=== PATIENT | male | born 1990 | race Caucasian/White ===

== ENCOUNTER 2020-10-29 12:31 | Emergency (ER) | payer SELFPAY ==
[2020-10-29 14:02] VITALS: BP 148/81; PULSE 64; RESP 16; TEMP 36.7; O2SAT 97; BMI 36.6
[2020-10-29 14:30] VITALS: BP 148/96; PULSE 64; RESP 18; TEMP 36.7; O2SAT 98
--- NOTE | 2020-10-29 14:37 | HMH.EDUTC ---
[facility] Disposition Clinical Impression: Exposure to COVID-19 virus Disposition: Home, Self-Care Condition on Discharge: Good Instructions: DI for COVID-19 (Suspected or Confirmed ), Coronavirus Disease 2019, Preventing the Spread of Coronavirus Discharge Instructions Additional Instructions: *Monitor Temp, Over the counter Motrin or Tylenol as directed/as needed Tylenol every 4 hours and Motrin every 6 hours (as long as your family doctor has told you that you can take it) for fever or pain. and straight to ER if unable to lower temp less than 101.0 after medication given *Warm fluids like tea with honey may help to soothe the throat and open up nasal passages and help with cough *Sleep elevated *Humidifier/Vaporizer Over the counter Cough medication like robitussin may help with cough Over the counter mucinex may help with congestion make sure to drink plenty of fluids with it Follow up IMMEDIATELY for new or worsening symptoms or no Noticeable improvement over the next 48-72 hours. 911 for difficulty breathing or swallowing You were tested for today for COVID19 your test result should be back in the next 24-48 hours, you may call to the [facility] to see if your test results are back in the next 48 hours [phone] [facility] hours are 9am-9pm You was given a handout with instructions for Self Quarantine and Self isolation for while you wait on test results and what to do if they are positive If you are positive the Health Dept will be contacting you also Make sure to take your Vitamins Vit. C Vit D and Zinc if you can take them Referrals: Provider,Referral, MD [Primary Care Provider] - As needed Forms: Work/School Release Time of Disposition: 14:40 Medical Decision Making - Flex Inquiry Pt receiving controlled substance: No Flex was queried for this patient: No Vital Signs: 10/29/20 14:02 Temperature 98.1 F Temperature Source Oral Pulse Rate [Right] 64 Respiratory Rate 16 Blood Pressure [Right Arm] 148/81 H Blood Pressure Mean [Right Arm] 103 02 Sat by Pulse Oximetry 97 Oxygen Delivery Method Room Air Orders (Tests/Meds): ORDERS Category Date Time Status Covid-19 Nasal PCR ([facility]) Routine Lab 10/29/20 14:10 Received [facility] HPI - General Stated complaint: covid exposure,symtoms Time Seen by Provider: 10/29/20 14:37 Mode of Arrival: Family Vehicle Source of Information: Patient Limitations: No Limitations Description of Symptoms (Recalled from Triage Doc. by RN): Patient reports he was exposed to COVID from his fiance. Patient c/o loss of taste and smell and general mylagia. HEENT Symptoms (Recalled from RN notes): Yes Resp Symptoms (Recalled from RN notes): No Skin Symptoms (Recalled from RN notes): No MS Symptoms (Recalled from RN notes): Yes Functional Status (Recalled from RN notes): na - History of Present Illness Provider Complaint: Patient state that his fiance and her daughter recently tested positive for COVID state that he is now having symptoms and wants to get tested States that he is having body aches cough and chills and loss of taste and smell so he came in today to get tested - Worker's Comp Is this a Worker's Comp case?: No Is this an [facility] Worker's Comp?: No Is this a Deann Worker's Comp?: No H History - Hepatitis A Screen Drug use history?: No High risk sexual behaviors?: No History of sexually transmitted infection?: No Currently employed?: No Childcare worker?: No Do you have indoor plumbing?: Yes Do you have electricity?: Yes Attestation statement:: This patient has been screened for Hepatitis A risk factors. I have reviewed the patient's past medical history: Yes ROS Obtained: Yes All systems reviewed & no additional complaints, Yes Systems reviewed as appropriate & no additional complaints - Constitutional Constitutional: Reports system reviewed and no additional complaints, except as docu, Reports body ache, Reports chills, Reports fatigue - ENT Ears, Nose, Mo
--- NOTE | 2020-10-30 16:07 | PC.NURSE ---
attempted to call and notify pt of test result, no answer, voicemail left asking for a return call.
--- NOTE | 2020-10-30 16:13 | PC.NURSE ---
notified pt of positive covid swab result at this time
== END 2020-10-29 14:47 | disposition home or self-care (01) ==
PROVIDERS: Emergency Provider Nurse Practitioner
DX: U07.1 COVID-19 (principal)
CPT/HCPCS: 99202; G0463; U0003

== ENCOUNTER 2020-12-30 22:23 | Emergency (ER) | payer SELFPAY ==
[2020-12-30 22:24] VITALS: BP 152/102; PULSE 110; RESP 16; TEMP 36.9; O2SAT 98; BMI 36.5
--- NOTE | 2020-12-30 22:40 | CT_ITS ---
PROCEDURE INFORMATION: Exam: CT Abdomen And Pelvis With Contrast Exam date and time: 12/30/2020 10:40 PM Age: 30 years old Clinical indication: Abdominal pain; Localized; Left upper quadrant (luq); Patient HX: Luq pain, PT has diverticulitis TECHNIQUE: Imaging protocol: Computed tomography of the abdomen and pelvis with contrast. Radiation optimization: All CT scans at this facility use at least one of these dose optimization techniques: automated exposure control; mA and/or kV adjustment per patient size (includes targeted exams where dose is matched to clinical indication); or iterative reconstruction. Contrast material: ISOVUE; Contrast volume: 75 ml; Contrast route: IV; COMPARISON: No relevant prior studies available. FINDINGS: Liver: 2 cm simple cyst inferior right lobe of the liver. Gallbladder and bile ducts: Normal. No calcified stones. No ductal dilation. Pancreas: Normal. No ductal dilation. Spleen: Normal. No splenomegaly. Adrenal glands: Normal. No mass. Kidneys and ureters: Normal. No hydronephrosis. Stomach and bowel: Long segment wall thickening of the sigmoid ancolon most pronounced in the proximal sigmoid colon where there is diverticulosis and extensive surrounding inflammatory changes and these findings are concerning for acute diverticulitis. Appendix: No evidence of appendicitis. Intraperitoneal space: Small amount of free fluid in the pelvis. Vasculature: Unremarkable. No abdominal aortic aneurysm. Lymph nodes: Unremarkable. No enlarged lymph nodes. Urinary bladder: Unremarkable as visualized. Reproductive: Unremarkable as visualized. Bones/joints: Unremarkable. No acute fracture. Soft tissues: Unremarkable. IMPRESSION: Severe sigmoid diverticulitis. No perforation or abscess.
[2020-12-30 22:57] LABS: Basophils # 0.1 K/mm3 (0-0.2); Basophils % 0.5 % (0.1-2.0); Eosinophils # 0.1 K/mm3 (0.0-0.4); Eosinophils % 0.7 % (0.1-12.0); Hematocrit 49.3 % (42.0-52.0); Hemoglobin 16.3 g/dL (14.1-18.0); Lymphocytes # 1.6 K/mm3 (0.7-4.5); Lymphocytes % 10.4 % (10-50); Mean Corpuscular Hemoglobin 30.8 pg (27.0-31.2); Mean Corpuscular Volume 93.1 fl (80-94); Mean Platelet Volume 8.5 fl (7.4-10.4); Monocytes # 0.8 K/mm3 (0.1-1.0); Monocytes % 5.1 % (1.7-9.3); Neutrophils % 83.4 % (37.0-80.0); Platelet Count 249 K/mm3 (142-424); Red Blood Count 5.29 M/mm3 (4.60-6.20); Red Cell Distribution Width 13.9 % (11.5-17.5); White Blood Count 15.6 K/mm3 (4.8-10.8)
[2020-12-30 22:59] LABS: MANUAL DIFFERENTIAL MANUAL DIFFERENTIAL (MANUAL DIFF)
[2020-12-30 23:04] LABS: Alanine Aminotransferase 39 U/L (12-78); Albumin Level 4.2 g/dl (3.5-5.0); Albumin/Globulin Ratio 1.3 (1.1-1.8); Alkaline Phosphatase 75 U/L (38-126); Amylase 54 U/L (30-110); Anion Gap 13.8 mEq/L (5-15); Aspartate Amino Transferase 25 U/L (17-59); Bilirubin,Total 0.8 mg/dl (0.2-1.3); Blood Urea Nitrogen 9 mg/dl (9-20); Calcium 9.2 mg/dl (8.4-10.2); Carbon Dioxide 27 mmol/L (22.0-30.0); Chloride 102 mmol/L (98-107); Creatinine Clearance Estimated 297 mL/min (50-200); Estimated Glomerular Filt Rate 132 ml/min (>60); GFR (African American) 160 ML/MIN (>60); Globulin 3.2 g/dL (1.3-3.2); Glucose 107 mg/dl (74-100); Lipase 27 U/L (23-300); Potassium 3.8 mmoL/L (3.5-5.1); Sodium 139 mmol/L (136-145); Total Protein,Serum 7.4 g/dl (6.3-8.2)
[2020-12-30 23:11] LABS: Lymphocytes % 11 % (10-50); Monocytes % 10 % (2-9); Neutrophils % 79 % (42-76); Platelet Estimate Normal; RBC Morphology Normal; Total Cells Counted 100
[2020-12-30 23:23] LABS: Procalcitonin 0.075 ng/mL (0.0-2.0)
[2020-12-30 23:49] LABS: Erythrocyte Sedimentation Rate 7 mm/hr (0-15)
--- NOTE | 2020-12-31 00:20 | HMH.EDNVD ---
ED Disposition Clinical Impression: Diverticulitis, SIRS (systemic inflammatory response syndrome) Disposition: Home, Self-Care Condition on Discharge: Good Instructions: DI for Diverticulitis Additional Instructions: fluids and see pcp for follow up and also surg Prescriptions: levoFLOXacin [Levofloxacin 750MG Tablet*] 750 mg PO DAILY #10 tab Transmission Status: Pending to [facility] #[id number] metroNIDAZOLE [metroNIDAZOLE 500mg Tablet] 500 mg PO TID #30 tab Transmission Status: Pending to [facility] #[id number] Referrals: Provider,Referral, [Primary Care Provider] - - Critical Care Critical Care Time: No Attestation: On 12/30/20, the high probability of a clinically significant, sudden or life threatening deterioration of the following system(s) required my full and direct attention, intervention and personal management. The time I documented below is in addition to time spent performing reported procedures but includes the following listed in this critical care notation. Medical Decision Making - Medical Records Medical records reviewed: Yes: I reviewed the patient's medical records. - Flex Inquiry Pt receiving controlled substance: No Vital Signs: 12/30/20 22:24 12/31/20 00:22 12/31/20 00:30 Temperature 98.4 F Temperature Source Oral Pulse Rate 93 H 88 Pulse Rate [Right Radial] 110 H Respiratory Rate 16 Blood Pressure 112/68 115/73 Blood Pressure [Right Arm] 152/102 H Blood Pressure Mean [Right Arm] 118 Blood Pressure Source Automatic Cuff Blood Pressure Source [Right Arm] Automatic Cuff Blood Pressure Position Sitting Blood Pressure Position [Right Arm] Sitting 02 Sat by Pulse Oximetry 98 96 98 Oxygen Delivery Method Room Air Room Air - Lab Data Lab results reviewed: Yes: I reviewed the patient's lab results. Lab Results 12/30/20 22:48: WBC 15.6 H, RBC 5.29, Hgb 16.3, Hct 49.3, MCV 93.1, MCH 30.8, MCHC 33.0, RDW 13.9, Plt Count 249, MPV 8.5, Neut % (Auto) 83.4 H, Lymph % (Auto) 10.4, Woodward % (Auto) 5.1, Eos % (Auto) 0.7, Baso % (Auto) 0.5, Neut # (Auto) 13.0 H, Lymph # (Auto) 1.6, Woodward # (Auto) 0.8, Eos # (Auto) 0.1, Baso # (Auto) 0.1, Total Counted 100, Neutrophils % (Manual) 79 H, Lymphocytes % (Manual) 11, Monocytes % (Manual) 10 H, Platelet Estimate Normal, RBC Morphology Normal, ESR 7 12/30/20 22:48: Sodium 139, Potassium 3.8, Chloride 102, Carbon Dioxide 27, Anion Gap 13.8, BUN 9, Creatinine 0.70, Estimated Creat Clear 297, Estimated GFR 132, Est GFR ( Amer) 160, Glucose 107 H, Calcium 9.2, Total Bilirubin 0.8, AST 25, ALT 39, Alkaline Phosphatase 75, C-Reactive Protein 83.0 H, Total Protein 7.4, Albumin 4.2, Globulin 3.2, Albumin/Globulin Ratio 1.3, Amylase 54, Lipase 27, Procalcitonin 0.075 12/31/20 00:20: Lactate 0.8 Result diagrams: 12/30/20 22:48 12/30/20 22:48 Orders (Tests/Meds): ED MEDICATIONS Generic Name Dose Route Start Last Admin Trade Name Freq PRN Reason Stop Dose Admin Sodium Chloride 1,000 mls @ 999 mls/hr 12/30/20 22:45 12/30/20 23:04 Sod Chlor 0.9% 1000ml Bag IV 12/30/20 23:45 999 mls/hr .Q1H1M KAROLINA Administration Sodium Chloride 1,000 mls @ 999 mls/hr 12/31/20 00:15 12/31/20 00:44 Sod Chlor 0.9% 1000ml Bag IV 12/31/20 01:15 999 mls/hr .Q1H1M KAROLINA Administration Levofloxacin/Dextrose 750 mg in 150 mls @ 100 mls/hr 12/31/20 00:30 12/31/20 00:35 Levofloxacin 750mg/150ml Premix IV 01/14/21 00:29 100 mls/hr Q24H KAROLINA Administration Sodium Chloride 8 ml 12/30/20 22:40 Sodium Chloride 0.9% 10ml Vial IV 01/29/21 22:39 NEEDED PRN dilute pepcid Discontinued Medications Generic Name Dose Route Start Last Admin Trade Name Freq PRN Reason Stop Dose Admin Famotidine 20 mg 12/30/20 22:40 12/30/20 23:05 Famotidine 20mg/2ml Vial IV 12/30/20 22:41 20 mg ONCE ONE Administration Iopamidol 75 ml 12/30/20 23:04 12/30/20 23:07 Iopamidol-370 (76%);100ml Rory
[2020-12-31 00:22] VITALS: BP 112/68; PULSE 93; O2SAT 96
[2020-12-31 00:30] VITALS: BP 115/73; PULSE 88; O2SAT 98
[2020-12-31 00:57] LABS: Lactic Acid 0.8 mmol/L (0.7-2.1)
[2020-12-31 01:21] VITALS: BP 118/81; PULSE 88; RESP 14; TEMP 37.1
== END 2020-12-31 01:24 | disposition home or self-care (01) ==
PROVIDERS: Emergency Provider Emergency Medicine
DX: K57.92 Diverticulitis of intestine, part unspecified, without perforation or abscess without bleeding (principal); R65.10 Systemic inflammatory response syndrome (SIRS) of non-infectious origin without acute organ dysfunction
CPT/HCPCS: 74177; 80053; 82150; 83605; 83690; 84145; 85007; 85025; 85651; 86140; 87040; 99283; J1956; J2405; Q9967

== ENCOUNTER 2022-03-02 19:17 | Emergency (ER) | payer BC, SELFPAY ==
[2022-03-02 20:10] VITALS: BP 148/106; PULSE 74; RESP 16; TEMP 36.8; O2SAT 98; BMI 35.3
--- NOTE | 2022-03-02 20:32 | EXP.UTC ---
Discharge Plan Disposition Patient Disposition: Home, Self-Care Condition: Good Prescriptions Prescriptions: New azithromycin [Zithromax Z-Livan] 250 mg tablet See Rx Instructions .ROUTE .COMPLEX 5 Days Qty: 6 0RF Rx Instructions: For 250 mg dose pack: take 500 mg today (day 1), then 250 mg for 4 days (days 2-5) ondansetron 4 mg tablet,disintegrating 4 mg PO Q8H PRN (Reason: nausea and vomiting) Qty: 10 0RF No Action levofloxacin 750 MG tablet 750 mg PO DAILY Qty: 10 0RF metronidazole 500 MG tablet 500 mg PO TID Qty: 30 0RF Referrals Follow up/Referrals: Provider,Referral, MD [Primary Care Provider] - See instructions Activity Restrictions/Add. Instructions Additional Instructions/Restrictions: *Monitor Temp, Over the counter Motrin or Tylenol as directed/as needed Tylenol every 4 hours and Motrin every 6 hours (as long as your family doctor has told you that you can take it) for fever or pain. and straight to ER if unable to lower temp less than 101.0 after medication given *Warm salt water gargles may help to soothe the throat *Throat Lozenges? *Warm fluids like tea with honey may help to soothe the throat? *Sleep elevated *Humidifier/Vaporizer Your throat swab was sent for culture. Those results are typically sent to your primary care. Be sure to follow up in 2-3 days with your family doctor/primary care physician if no improvement so they can review those result and treat if necessary. If you don?t have a primary care doctor, I recommend you get one but in the mean time, you will have to return to a walk in clinic Follow up IMMEDIATELY for new or worsening symptoms or no Noticeable improvement over the next 48-72 hours. 911 for difficulty breathing or swallowing Take your blood pressure medication as prescribed and follow up with your Family Doctor for re-evaluation Straight to ER if worse headache of your life or worsening of blood pressure Clinical Impressions Clinical Impression: Pharyngitis Instructions Patient Instructions: Sore Throat Discharge ED Provider: Bernice Delgadillo [facility] General Stated complaint: exposed to strep, sore throat Mode of Arrival: Ambulatory Source of Information: Patient Limitations: No Limitations Time Seen by Provider: 03/02/22 20:32 Description of Symptoms (Recalled from Triage Doc. by RN): PATIENT C/O SORE THROAT, RECENTLY EXPOSED TO STREP HEENT Symptoms (Recalled from RN notes): Yes Resp Symptoms (Recalled from RN notes): No Skin Symptoms (Recalled from RN notes): No MS Symptoms (Recalled from RN notes): No Functional Status (Recalled from RN notes): WNL History of Present Illness Provider Complaint: Patient states that he was around his son that has strep throat States that he has been having sore throat and nausea States that he feels like he may have strep throat Related Data Previous Rx's Medication Instructions Recorded levofloxacin 750 mg tablet 750 mg PO DAILY #10 tabs 12/31/20 metronidazole 500 mg tablet 500 mg PO TID #30 tabs 12/31/20 azithromycin 250 mg tablet See Rx Instructions PO .COMPLEX 5 03/02/22 (Zithromax Z-Livan) days #6 tabs ondansetron 4 mg disintegrating 4 mg PO Q8H PRN nausea and 03/02/22 tablet vomiting #10 tabs Allergies Allergy/AdvReac Type Severity Reaction Status Date / Time Penicillins Allergy Verified 12/30/20 22:39 Worker's Comp Is this a Worker's Comp case?: No [facility] Disclaimer: The information contained in this section may have been updated after the patient was seen, as this information can be updated by other users. Medical History (Updated 03/02/22 @ 20:42 by Bernice Delgadillo APRN) No significant past medical history Social History (Updated 03/02/22 @ 20:25 by Shala Harris RN) Smoking Status: Unknown if ever smoked alcohol intake: never current occupational status: other Travel in the last 8 weeks: None ROS Obtained: Yes All systems rev
[2022-03-02 20:46] VITALS: BP 148/106; PULSE 74; RESP 16; TEMP 36.8; O2SAT 98
[2022-03-03 19:32] LABS: UTC Strep Screen (Rapid) Negative (Negative)
== END 2022-03-02 20:51 | disposition home or self-care (01) ==
PROVIDERS: Emergency Provider Nurse Practitioner
DX: J02.9 Acute pharyngitis, unspecified (principal); Z20.828 Contact with and (suspected) exposure to other viral communicable diseases
CPT/HCPCS: 87880; 99212; G0463

== ENCOUNTER → 2022-04-25 14:07 | Outpatient (CLI) | payer BC, SELFPAY | PROVIDERS: PCP Nurse Practitioner Family; Visit Provider Nurse Practitioner Family | DX: G47.33 Obstructive sleep apnea (adult) (pediatric) (principal); R53.83 Other fatigue; R06.83 Snoring | CPT/HCPCS: G0399 ==

== ENCOUNTER → 2022-05-05 11:19 | Outpatient (CLI) | payer BC, SELFPAY ==
--- NOTE | 2022-05-05 11:28 | XR_ITS ---
FINAL REPORT CLINICAL HISTORY: KNEE PAIN, ARTHRITIS FINDINGS: AP, lateral and oblique views of the left knee were obtained. There is no prior exam for comparison. There is no acute osseous abnormality of the left knee. The joint space is preserved. The soft tissues are normal. There is no joint effusion. IMPRESSION: No acute osseous abnormality of the left knee. Reviewed, Interpreted and Dictated by Martina Guerra MD Transcribed by Lisa Hunter Authenticated and [facility]
--- NOTE | 2022-05-05 11:28 | XR_ITS ---
FINAL REPORT CLINICAL HISTORY: ARTHRITIS, KNEE PAIN FINDINGS: AP, lateral and oblique views of the right knee were obtained. There is no prior exam for comparison. There is no acute osseous abnormality of the right knee. The joint space is preserved. The soft tissues are normal. There is no joint effusion. IMPRESSION: No acute osseous abnormality of the right knee. Reviewed, Interpreted and Dictated by Martina Guerra MD Transcribed by Lisa Hunter Authenticated and [facility]
== END ==
LOC: RAD 11:20
PROVIDERS: PCP Nurse Practitioner Family; Visit Provider Nurse Practitioner Family
DX: M17.0 Bilateral primary osteoarthritis of knee (principal)
CPT/HCPCS: 73562

== ENCOUNTER 2022-05-19 11:27 | Emergency (ER) | payer BC, SELFPAY ==
[2022-05-19 12:10] VITALS: BP 138/98; PULSE 82; RESP 20; TEMP 37.1; O2SAT 98; BMI 34.2
--- NOTE | 2022-05-19 12:27 | EXP.UTC ---
Discharge Plan Disposition Patient Disposition: Home, Self-Care Condition: Good Prescriptions Prescriptions: New clindamycin HCl 300 mg capsule 300 mg PO Q8H Qty: 30 0RF prednisone 10 mg tablet 10 mg PO BID 3 Days Qty: 6 0RF ondansetron 4 mg Tablet,Disintegrating 4 mg PO Q8H PRN (Reason: Nausea) Qty: 12 0RF No Action lisinopril 10 mg tablet 10 mg PO DAILY amlodipine [Norvasc] 10 mg tablet 10 mg PO DAILY Referrals Follow up/Referrals: Belia Husain APRN [Primary Care Provider] - See instructions Activity Restrictions/Add. Instructions Additional Instructions/Restrictions: Drink plenty of fluids. Take tylenol or ibuprofen for pain or fever. Take the medications as directed. Follow up with your regular doctor. GO TO THE ER FOR ANY WORSENING SYMPTOMS Throw your tooth brush away and get a new one. Clinical Impressions Clinical Impression: Strep throat Stand Alone Forms Stand Alone Forms: Work/School Release Instructions Patient Instructions: Strep Throat, DI for Strep Throat Discharge ED Provider: Rahul Queen [facility] General Stated complaint: head congestion, cough Time Seen by Provider: 05/19/22 12:26 History of Present Illness Provider Complaint: He states that for the past 2 days he has had a worsening sore throat, fever, chills and malaise. Related Data Home Medications Medication Instructions Recorded Confirmed lisinopril 10 mg tablet 10 mg PO DAILY . 05/13/22 05/19/22 amlodipine 10 mg tablet (Norvasc) 10 mg PO DAILY . 05/16/22 05/19/22 Previous Rx's Medication Instructions Recorded clindamycin HCl 300 mg capsule 300 mg PO Q8H #30 caps 05/19/22 ondansetron 4 mg disintegrating 4 mg PO Q8H PRN Nausea #12 tabs 05/19/22 tablet prednisone 10 mg tablet 10 mg PO BID 3 days #6 tabs 05/19/22 Allergies Allergy/AdvReac Type Severity Reaction Status Date / Time Penicillins Allergy Verified 05/19/22 12:35 [facility] Disclaimer: The information contained in this section may have been updated after the patient was seen, as this information can be updated by other users. Medical History No significant past medical history Social History Smoking Status: Former smoker alcohol intake: current substance use type: denies use current occupational status: employed Travel in the last 8 weeks: None household members: spouse housing: apartment marital status: number of children: 8 ROS Obtained: Yes All systems reviewed & no additional complaints except as documented Constitutional Constitutional: Reports chills and Reports fever(s) Eyes Eyes: Denies eye discharge ENT Ears, Nose, Mouth, and Throat: Reports as per HPI Cardiovascular Cardiovascular: Denies chest pain Respiratory Respiratory: Denies chest congestion and Reports cough Gastrointestinal Gastrointestingal: Reports nausea; Denies abdominal pain, constipation, cramping, diarrhea or vomiting Musculoskeletal Musculoskeletal: Denies arthralgias Integumentary/Breasts Skin/Breast: Denies rash Neurologic Neurologic: Denies paresthesias Physical Exam General General appearance: alert and in no apparent distress Head Head exam: atraumatic, normocephalic and normal inspection Eye Eye exam: Present normal appearance, PERRL and EOMI ENT ENT exam: Present mucous membranes moist and normal external ear exam Expanded ENT Exam TM/Canal exam: Bilateral TM: erythema and bulging Nose exam: Absent sinus tenderness Mouth exam: Present normal external inspection; Absent drooling Teeth exam: Present normal inspection Throat exam: Present tonsillar erythema, tonsillomegaly and tonsillar exudate Neck Neck exam: Present normal inspection, full ROM and trachea midline; Absent tenderness, meningismus or lymphadenopathy Chest Chest inspection: Present normal inspection
[2022-05-19 12:39] LABS: UTC Strep Screen (Rapid) Positive (Negative)
[2022-05-19 13:05] VITALS: BP 138/98; PULSE 82; RESP 20; TEMP 37.1; O2SAT 98
== END 2022-05-19 13:05 | disposition home or self-care (01) ==
PROVIDERS: Emergency Provider Nurse Practitioner Family; PCP Nurse Practitioner Family
DX: J02.0 Streptococcal pharyngitis (principal); R53.81 Other malaise; R05.1 Acute cough; R50.9 Fever, unspecified
CPT/HCPCS: 87880; 99212; 99214; G0463

== ENCOUNTER 2024-04-29 11:25 | Emergency (ER) | payer OTHER, SELFPAY ==
[2024-04-29 11:35] VITALS: BP 134/93; PULSE 108; RESP 18; TEMP 37.5; O2SAT 96; BMI 35.3
[2024-04-29 11:40] VITALS: BP 134/93; PULSE 108; RESP 18; TEMP 37.5; O2SAT 96
--- NOTE | 2024-04-29 11:41 | HMH.EDGENADL ---
Discharge Plan Disposition Patient Disposition: Home, Self-Care Condition: Good Prescriptions Prescriptions: No Action No Known Home Medications Referrals Follow up/Referrals: Belia Daniel APRN [Primary Care Provider] - See instructions Activity Restrictions/Add. Instructions Additional Instructions/Restrictions: You are found to have influenza A. You can take Tylenol and ibuprofen to help with symptoms. Follow-up with your primary care physician if symptoms do not improve over the next week. If you develop any new or worsening symptoms, or if you become concerned for your health for any reason, return to the emergency department for evaluation Clinical Impressions Clinical Impression: Influenza A Print Language Print Language: Yoruba Discharge ED Provider: Samy Sullivan General Adult HPI General Chief complaint: Fever Stated complaint: fever, congestion, cough, headache, weakness Time Seen by Provider: 04/29/24 11:41 Mode of Arrival: Ambulatory Source of Information: Patient Limitations: No Limitations Description of Symptoms (Recalled from ER Triage Doc. by RN): PT STATED HE WAS EXPOSED TO PNA RECENTLY. ENDORSES HE HAS HAD A FEVER AND COUGH HAS TAKEN MOTRIN, SUDA-FED, AND ROBITUSSIN History of Present Illness HPI narrative: Doc Baumann is a 33-year-old male with a past medical history of diverticulosis and pneumonia as a child who presents to the emergency department for complaints of cough, fever and nasal congestion. Patient reports that his stepson is currently admitted in [facility] with bronchitis and pneumonia. Patient states that starting last night, he developed nasal congestion and a fever of 101 ?F. He has been taking [id number] antipyretics for symptoms. He also notes that he has been coughing and it has been mildly productive. He is concerned he might have pneumonia. He denies any vomiting or diarrhea. Related Data Home Medications ?Medication ?Instructions ?Recorded ?Confirmed No Known Home Medications 04/29/24 04/29/24 Allergies Allergy/AdvReac Type Severity Reaction Status Date / Time Penicillins Allergy Verified 10/04/23 09:08 benadryl AdvReac Mild Uncoded 10/04/23 09:08 [facility] Disclaimer: The information contained in this section may have been updated after the patient was seen, as this information can be updated by other users. Surgical History (Updated 10/04/23 @ 09:14 by SELAM Mariee) No history of previous surgery Social History (Updated 02/15/23 @ 15:26 by Odalys Leos) Smoking Status: Never smoker alcohol intake: current alcohol intake frequency: holidays/special occasions only substance use type: denies use current occupational status: employed Travel in the last 8 weeks: None household members: spouse housing: house marital status: number of children: 8 Have you lived/traveled outside US in past 30 days?: No Contact w/someone who lives/traveled outside US past 30 days?: No Exposure to someone with infectious disease in past 14 days?: No Do you have a fever (greater than 100.4 F or 38 C)?: Yes Have you tested positive for COVID-19: No Exposed to someone with COVID-19 in past 14 days?: No Do you have a sore throat?: No Do you have a cough?: Yes Do you have any weakness?: Yes Do you have any diarrhea?: No Are you experiencing any unusual bleeding?: No Do you have any muscle aches/pain?: Yes Do you have any abdominal pain?: No Are you experiencing loss of taste or smell?: No Other Medical History Have you received the Flu Vaccine for this season: Yes Have you received the Pneumonia Vaccine: No ROS Obtained: Yes Systems reviewed as appropriate & no additional complaints except as documented Physical Exam General General appearance: alert and in no apparent distress Head Head exam: atraumatic Eye Eye exam: Present normal appearance ENT ENT exam: Present normal external ear exam Neck Neck exam: Present full ROM Chest Chest inspection: Present symmetric chest wall rise Respiratory Respiratory exam: Present normal lung sounds bilaterally; Absent respiratory distress, wheezes or stridor Cardiovascular Cardiovascular exam: Present regular rate and normal rhythm Abdominal Exam Abdominal exam: Present soft; Absent tenderness or guarding exam: Present deferred Extremities Exam Extremities exam: Present normal inspection Back Exam Back exam: Present normal inspection Neurological Exam Neurological exam: Present alert and oriented X3 Psychiatric Psychiatric exam: Present normal affect Skin Skin exam: Present warm and dry Medical Decision Making Medical Records Screening: Per USPSTF and CDC recommendations, given the prevalence of disease in our region, it is our hospital?s policy to screen for HIV and viral Hepatitis for all patients aged 18 and over and those with ongoing risk factors. Flex Inquiry Pt receiving controlled substance: No Vital Signs: 04/29/24 11:35 04/29/24 11:40 04/29/24 11:41 Temperature 99.5 F 99.5 F Temperature Source Oral Oral Oral Pulse Rate 108 H Pulse Rate [Right Radial] 108 H Respiratory Rate 18 18 Blood Pressure 134/93 H Blood Pressure [Left Arm] 134/93 H Blood Pressure Mean [Left Arm] 106 Blood Pressure Source Automatic Cuff Blood Pressure Source [Left Arm] Automatic Cuff Blood Pressure Position Sitting Blood Pressure Position [Left Arm] Sitting 02 Sat by Pulse Oximetry 96 96 Oxygen Delivery Method Room Air Room Air 04/29/24 12:17 04/29/24 14:09 Temperature 99.5 F Temperature Source Oral Pulse Rate 100 H 100 H Pulse Rate [Right Radial] Respiratory Rate 18 Blood Pressure 129/85 129/85 Blood Pressure [Left Arm] Blood Pressure Mean [Left Arm] Blood Pressure Source Automatic Cuff Blood Pressure Source [Left Arm] Blood Pressure Position Sitting Blood Pressure Position [Left Arm] 02 Sat by Pulse Oximetry 96 Oxygen Delivery Method Room Air Room Air Lab Data Lab Results 04/29/24 11:59: SARS-CoV-2 (PCR) Not detected, Influenza A Untype (PCR) Detected A, Influenza Type B (PCR) Not detected Orders (Tests/Meds): ORDERS Category Date Time Status CXR 2 view (NOT portable) [XR chest 2V] Stat Exams 04/29/24 11:46 Completed Rapid PCR Covid and Flu A/B Stat Lab 04/29/24 11:59 Completed Medical Decision Narrative: Doc Baumann is a 33-year-old male with a past medical history of diverticulosis and pneumonia as a child who presents to the emergency department for complaints of cough, fever and nasal congestion. Patient reports that his stepson is currently admitted in [facility] with bronchitis and pneumonia. Patient states that starting last night, he developed nasal congestion and a fever of 101 ?F. He has been taking [id number] antipyretics for symptoms. He also notes that he has been coughing and it has been mildly productive. He is concerned he might have pneumonia. He denies any vomiting or diarrhea. On arrival, patient is mildly tachycardic but afebrile, normotensive, breathing comfortably on room air and in no distress. Physical exam, stated above, revealed overall well-appearing male in no distress. He has no wheezing, rales or rhonchi. Cardiac exam reveals tachycardia but no murmurs or rubs appreciated. Differential diagnosis includes, but is not limited to: Viral respiratory illness such as COVID or flu, pneumonia, pleurisy, among others. Low concern for PE at this time as the patient has not had any hemoptysis and has had recent viral exposure. Workup included: COVID/flu testing, chest x-ray Chest x-ray interpreted by me personally and demonstrated no focal consolidation, no pneumothorax or pleural effusion. See radiology report for details. Patient did test positive for influenza A Patient was encouraged to take Tylenol and ibuprofen at home to help with symptoms and to continue hydrating well. He was encouraged to follow with his primary care physician if symptoms do not improve. Return precautions were given. He was then discharged from the emergency department in stable condition Critical Care Critical Care Time Critical Care Time: No
--- NOTE | 2024-04-29 11:46 | XR_ITS ---
FINAL REPORT CLINICAL HISTORY: Cough, fever, possible pneumonia COMPARISON: None FINDINGS: No acute pulmonary density is evident. There is no evidence of effusion or other pleural disease. The mediastinum has a normal appearance. The cardiac silhouette is unremarkable. IMPRESSION: Unremarkable chest exam. Reviewed, Interpreted and Dictated by Marcial Araya MD Transcribed by Stephanie Collazo Authenticated and [facility]
[2024-04-29 12:02] LABS: Coronavirus 19, PCR Not Detected (NotDetected); Influenza B, PCR Not Detected (NotDetected)
--- NOTE | 2024-04-29 12:02 | PC.NURSE ---
covid/swab sent to lab; pt reports no needs at this time.
[2024-04-29 12:17] VITALS: BP 129/85; PULSE 100; O2SAT 96
[2024-04-29 13:44] LABS: Influenza A, PCR Detected (NotDetected)
[2024-04-29 14:09] VITALS: BP 129/85; PULSE 100; RESP 18; TEMP 37.5; O2SAT 96
== END 2024-04-29 14:11 | disposition home or self-care (01) ==
PROVIDERS: Emergency Provider Student in an Organized Health Care Education/Training Program; PCP Nurse Practitioner Family
DX: J10.1 Influenza due to other identified influenza virus with other respiratory manifestations (principal); R50.9 Fever, unspecified; R05.9 Cough, unspecified; R09.81 Nasal congestion; R53.1 Weakness; Z20.828 Contact with and (suspected) exposure to other viral communicable diseases
CPT/HCPCS: 71046; 87636; 99283

== ENCOUNTER 2024-05-01 15:09 | Emergency (ER) | payer OTHER, SELFPAY ==
[2024-05-01 15:10] VITALS: BP 165/115; PULSE 109; RESP 18; TEMP 37.2; O2SAT 98; BMI 35.3
[2024-05-01 16:00] VITALS: BP 138/101; PULSE 103; O2SAT 95
--- NOTE | 2024-05-01 16:17 | XR_ITS ---
PROCEDURE INFORMATION: Exam: XR Chest Exam date and time: 05/01/2024 4:30 PM Age: 33 years old Clinical indication: Shortness of breath; Additional info: Shortness of air TECHNIQUE: Imaging protocol: Radiologic exam of the chest. Views: 1 view. COMPARISON: CR XR CHEST 2V 04/29/2024 11:41 AM FINDINGS: Lungs: Normal. Pleural spaces: Normal. No pleural effusion. No pneumothorax. Heart/Mediastinum: Normal. No cardiomegaly. Bones/joints: Unremarkable. IMPRESSION: No acute findings.
--- NOTE | 2024-05-01 16:21 | PC.NURSE ---
rounded on the pt. the pt voices that he does not need anything at this time. call light is within reach of the pt.
--- NOTE | 2024-05-01 16:36 | ED_ITS ---
<Statement entered by Luis Alberto Terry MD - 05/01/24 21:40> I was consulted by the MELODY, and we discussed the complexity of the problems being addressed. I approved the treatment and management plan for this patient's care in the emergency department, thus performing a substantive portion of the medical decision making. Luis Alberto Terry MD Discharge Plan Disposition Patient Disposition: Home, Self-Care Condition: Good Chief Complaint: Upper Respiratory Infection Prescriptions Prescriptions: No Action No Known Home Medications Referrals Follow up/Referrals: Belia Daniel APRN [Primary Care Provider] - See instructions Activity Restrictions/Add. Instructions Additional Instructions/Restrictions: Return to the emergency department any worsening signs or symptoms continue with supportive care, xobg-ojg-extlgel cold and flu medications ibuprofen and Tylenol. Follow-up with family doctor. Clinical Impressions Clinical Impression: Influenza A Instructions Patient Instructions: DI for Influenza -- Adult, DI for Acute Bronchitis Print Language Print Language: Greek Discharge ED Provider: Luis Alberto Terry General Adult HPI General Chief complaint: Upper Respiratory Infection Stated complaint: flu+, rattly breathing, chills Time Seen by Provider: 05/01/24 15:23 Mode of Arrival: Ambulatory Source of Information: Patient Limitations: No Limitations Description of Symptoms (Recalled from ER Triage Doc. by RN): Patient reports being diagnosed with Flu A on Monday and states that when he coughs it sounds rattly . Patient states he just wants someone to listen to his lungs. History of Present Illness HPI narrative: This is a 33-year-old male who presents to the emergency department with cough congestion, body aches fatigue malaise, and shortness of air, patient was recently seen in the emergency department 2 days ago for similar complaint was diagnosed with influenza A, patient has been having persistent fevers, he has been utilizing ibuprofen Tylenol grpi-yxw-cjukbop cold and flu medications as directed, with some relief. He woke up this morning with some rattling in my chest , he presents to the emergency department today to make sure I do not have pneumonia . He has a history of pneumonia as a child , other past medical history consistent with diverticulosis. Otherwise no real relevant past medical history, denies abdominal pain constipation, denies vomiting, diarrhea, denies any real chest pain, urinary type symptomatology. Triage vitals notable for tachycardia, otherwise afebrile, O2 within normal limits, denies any history of substance use, denies any history of lung disease such as COPD or asthma. Onset (ago): day(s) Related Data Home Medications ?Medication ?Instructions ?Recorded ?Confirmed No Known Home Medications 04/29/24 05/01/24 Allergies Allergy/AdvReac Type Severity Reaction Status Date / Time Penicillins Allergy Verified 10/04/23 09:08 benadryl AdvReac Mild Uncoded 10/04/23 09:08 PFSH [facility] Disclaimer: The information contained in this section may have been updated after the patient was seen, as this information can be updated by other users. Surgical History (Updated 10/04/23 @ 09:14 by SELAM Mariee) No history of previous surgery Social History (Updated 02/15/23 @ 15:26 by Odalys Leos) Smoking Status: Never smoker alcohol intake: current alcohol intake frequency: holidays/special occasions only substance use type: denies use current occupational status: employed Travel in the last 8 weeks: None household members: spouse housing: house marital status: number of children: 8 Have you lived/traveled outside US in past 30 days?: No Contact w/someone who lives/traveled outside US past 30 days?: No Exposure to someone with infectious disease in past 14 days?: No Do you have a fever (greater than 100.4 F or 38 C)?: Yes Have you tested positive for COVID-19: No Exposed to someone with COVID-19 in past 14 days?: No Do you have a sore throat?: No Do you have a cough?: No Do you have any weakness?: No Do you have any diarrhea?: No Are you experiencing any unusual bleeding?: No Do you have any muscle aches/pain?: No Do you have any abdominal pain?: No Are you experiencing loss of taste or smell?: No Other Medical History Have you received the Flu Vaccine for this season: Yes Have you received the Pneumonia Vaccine: No ROS Obtained: Yes All systems reviewed & no additional complaints except as documented Physical Exam General General appearance: alert and in no apparent distress Head Head exam: atraumatic and normocephalic Eye Eye exam: Present PERRL and EOMI ENT ENT exam: Present mucous membranes moist Neck Neck exam: Present normal inspection Chest Chest inspection: Present normal inspection and symmetric chest wall rise Respiratory Respiratory exam: Present normal lung sounds bilaterally and other (Mild rhonchi noted in the upper airways, otherwise no wheezing, no Rales, no crackles, good expiratory and inspiratory phases); Absent respiratory distress Cardiovascular Cardiovascular exam: Present regular rate and normal rhythm Abdominal Exam Abdominal exam: Present soft; Absent tenderness, guarding or rebound Extremities Exam Extremities exam: Present normal inspection Neurological Exam Neurological exam: Present alert and oriented X3 Psychiatric Psychiatric exam: Present normal affect Skin Skin exam: Present warm and dry Medical Decision Making Medical Records Medical records reviewed: Yes I reviewed the patient's medical records. Screening: Per USPSTF and CDC recommendations, given the prevalence of disease in our region, it is our hospital?s policy to screen for HIV and viral Hepatitis for all patients aged 18 and over and those with ongoing risk factors. Flex Inquiry Pt receiving controlled substance: No Flex was queried for this patient: No Vital Signs: 05/01/24 15:10 05/01/24 16:00 Temperature 99.0 F Temperature Source Oral Pulse Rate 103 H Pulse Rate [Radial] 109 H Respiratory Rate 18 Blood Pressure 138/101 H Blood Pressure [Right Arm] 165/115 H Blood Pressure Mean [Right Arm] 131 Blood Pressure Source [Right Arm] Automatic Cuff Blood Pressure Position [Right Arm] Sitting 02 Sat by Pulse Oximetry 98 95 Oxygen Delivery Method Room Air Room Air Orders (Tests/Meds): ORDERS Category Date Time Status XR chest portable Stat Exams 05/01/24 16:17 Completed HIV Combo Stat Lab 05/01/24 15:20 Ordered Hepatitis C Ab Qual. W/ RFX Stat Lab 05/01/24 15:20 Ordered Medical Decision Narrative: 33-year-old male presents to the emergency department with right eye symptomatology, already diagnosed with influenza A 2 days ago, differential diagnose include but not limited to, acute bronchitis, influenza, pneumonia. I discussed patient case with attending physician Dr. Terry Offered laboratory studies and further workup to the patient, patient already has diagnosis of influenza, will obtain chest x-ray to rule out pneumonia, patient voiced understand agreement current treatment plan. Patient otherwise remained hemodynamically stable throughout his time in the emergency department, patient's tachycardia has improved, tachypnea, no decreased oxygen saturation. The patient's chest x-ray along the corresponding radiologic report no acute findings. Discussed these results with the patient at the bedside, patient is going to be discharged home to self-care, patient is still somewhat in the window for Tamiflu/antiviral medication, offered to the patient, he denied at this time would like to continue with other supportive care shared decision making was utilized this is appropriate. Patient will follow-up with PCP as directed, strict ED return precautions were given. Patient voiced understanding agreement with current discharge plan/treatment plan. Critical Care Critical Care Time Critical Care Time: No
[2024-05-01 17:00] VITALS: BP 126/96; PULSE 98; RESP 18; TEMP 37.2; O2SAT 99
== END 2024-05-01 17:00 | disposition home or self-care (01) ==
PROVIDERS: Emergency Provider Emergency Medicine; PCP Nurse Practitioner Family
DX: J09.X2 Influenza due to identified novel influenza A virus with other respiratory manifestations (principal)
CPT/HCPCS: 71045; 99284

== ENCOUNTER 2024-09-26 22:30 | Inpatient (IN) | payer OTHER, SELFPAY ==
--- OUTSIDE RECORDS SUMMARY | 2024-06-08 17:30 | XMS_ITS ---
Author Organization [facility] Address [address] [place] [address] Care Team Providers Care Supervising Deputy Name Role Phone Yousif Daniel Primary Care Provider YOUSIF Daniel APRN Unavailable Unavailable Migration, Provider Unavailable Unavailable [facility] Encounter Medications Medication SIG (Take, Route, Frequency, Duration) Notes Start Date End Date Status amLODIPine Besylate 10 MG 1 tab(s) orally once a day; Duration: 30 day(s) 04/07/2022 Active Metamucil Smooth Texture 58.6 % as directed orally once a day; Duration: 7 day(s) 04/29/2022 Active MiraLax - DIRECTED ORALLY ONCE A DAY; Duration: 30 DAY(S) *Please review and pick correct strength-formulation from [facility] options. If intended option is not shown, discontinue and re-order from Quick Search* 04/29/2022 Active Lisinopril 10 MG 1 tab(s) orally once a day; Duration: 30 day(s) 05/05/2022 Active Encounters Encounter Location Date Provider Diagnosis [facility] [address] [place], [place] [address] 06/08/2024 Provider Migration Essential (primary) hypertension I10 Assessments Encounter Date Diagnosis (ICD Code) Assessment Notes Treatment Notes Treatment Clinical Notes Section Notes 06/08/2024 Essential (primary) hypertension (ICD-10 - I10) Plan Of Treatment Medication Medication Name Sig Start Date Stop Date Notes Lisinopril 10 MG 1 tab(s) orally once a day; Duration: 30 day(s) 05/05/2022 Progress Notes * Doc BAUMANNDOB:1990 (33 yo M)Acc No.[id number]:06/08/2024 Patient: Doc MALIK Provider: Mitali Diaz :1990 A ge:33 Y S ex:Male Date:06/08/2024 Address:[address] [place] [address] , [place], [id number] Pcp:Yousif Danile Subjective: * Chief Complaints: * 1 . [facility] En[facility]. * Medical History: * Medications: T aking amLODIPine Besylate 10 MG Tablet 1 tab(s) orally once a day , Taking Metamucil Smooth Texture 58.6 % Powder as directed orally once a day , Taking MiraLax - POWDER FOR RECONSTITUTION DIRECTED ORALLY ONCE A DAY , Notes to Pharmacist: *Please review and pick correct strength[facility]ulation [facility]. If intended option is not shown, discontinue and re-order from Quick Search* Objective: * Vitals: Assessment: * Assessment: 1. E ssential (primary) hypertension - I10 (Primary) Plan: * Treatment: * * Electronic signature of Azra ider Migration on 09/27/2024 at 09:35 AM EDT Sign off status: Pending * Provider: Mitali Diaz Date: 0 06/08/2024 Generated for Brady guzmán/Katherin/Vandana on: 0 09/27/2024 09:35 AM EDT
--- OUTSIDE RECORDS SUMMARY | 2024-06-08 17:30 | XMS_ITS ---
Author Organization [facility] Address [address] [place] [address] Care Team Providers Care Veneer Jointer Returner Name Role Phone Yousif Daniel Primary Care Provider YOUSIF Daniel APRN Unavailable Unavailable Migration, Provider Unavailable Unavailable REASON FOR VISIT [facility] Encounter Medications Medication SIG (Take, [...] *Please review and pick correct strength-formulation from [facility] options. If intended option is not shown, discontinue and re-order from Quick Search* 04/29/2022 Active Lisinopril 10 MG 1 tab(s) orally once a day; Duration: 30 day(s) 05/05/2022 Active Encounters Encounter Location Date Provider Diagnosis [facility] [address] [place], [place] [address] 06/08/2024 Provider Migration Essential (primary) hypertension I10 Assessments Encounter Date Diagnosis (ICD Code) Assessment Notes Treatment Notes Treatment Clinical Notes Section Notes 06/08/2024 Essential (primary) hypertension (ICD-10 - I10) Plan Of Treatment Medication Medication Name Sig Start Date Stop Date Notes Lisinopril 10 MG 1 tab(s) orally once a day; Duration: 30 day(s) 05/05/2022 Progress Notes * Doc BAUMANNDOB:1990 (33 yo M)Acc No.[id number]:06/08/2024 Patient: Doc MALIK Provider: Mitali Diaz :1990 A ge:33 Y S ex:Male Date:06/08/2024 Address:[address] [place] [address] , [place], [id number] Pcp:Yousif Daniel Subjective: * Chief Complaints: * 1 . [facility] Conversion Encounter. * Medical History: * Medications: T aking amLODIPine Besylate 10 MG Tablet 1 tab(s) orally once a day , Taking Metamucil Smooth Texture 58.6 % Powder as directed orally once a day , Taking MiraLax - POWDER FOR RECONSTITUTION DIRECTED ORALLY ONCE A DAY , Notes to Pharmacist: *Please review and pick correct strength-formulation from [facility] options. If intended option is not shown, discontinue and re-order from Quick Search* Objective: * Vitals: Assessment: * Assessment: 1. E ssential (primary) hypertension - I10 (Primary) Plan: * Treatment: * * Electronic signature of Azra ider Migration on 09/26/2024 at 10:44 PM EDT Sign off status: Pending * Provider: Mitali Diaz Date: 0 06/08/2024 Generated for Brady guzmán/Katherin/Roditting on: 0 09/26/2024 10:44 PM EDT
--- OUTSIDE RECORDS SUMMARY | 2024-09-26 22:44 | XMS_ITS | Patient Health Record ---
Author Organization [facility] Address [address] [place] [address] Care Team Providers Care Admissions Counselor Name Role Phone Yousif Daniel Primary Care Provider [phone] YOUSIF Daniel APRN Unavailable Unavailable Migration, Provider Unavailable Unavailable Allergies No Known Allergies Reason For Referral No Information Medications Medication SIG (Take, Route, Frequency, Duration) Notes Start Date End Date Status amLODIPine Besylate 10 MG 1 tab(s) orally once a day; Duration: 30 day(s) 04/07/2022 Active Metamucil Smooth Texture 58.6 % as directed orally once a day; Duration: 7 day(s) 04/29/2022 Active MiraLax - DIRECTED ORALLY ONCE A DAY; Duration: 30 DAY(S) *Please review and pick correct strength-formulation from [employer] options. If intended option is not shown, discontinue and re-order from Quick Search* 04/29/2022 Active Lisinopril 10 MG 1 tab(s) orally once a day; Duration: 30 day(s) 05/05/2022 Active Social History Tobacco Use: Social History Observation Description Date Details (start date - stop date) Former Smoker NA - NA Smoking: Question Answer Notes Are you a: former smoker How long has it been since you last smoked? 5-10 years Section Notes: dips tobacco dips tobacco dips tobacco Problems Problem Type SNOMED Code ICD Code Onset Dates Problem Status W/U Status Risk Notes Problem Essential hypertension (33241831) Essential (primary) hypertension (I10) Active confirmed Problem Excessive thirst (32083209) Polydipsia (R63.1) Active confirmed Problem Constipation by delayed colonic transit (84428999) Constipation by delayed colonic transit (K59.01) Active confirmed Problem Obstructive sleep apnea syndrome (62982070) CLIFFORD (obstructive sleep apnea) (G47.33) Active confirmed Problem Diverticular disease of colon (582796861) Diverticulosis (K57.90) Active confirmed Problem Arthritis of both knees (751151108998826 8) Arthritis of both knees (M17.0) Active confirmed Encounters Encounter Location Date Provider Diagnosis [facility] [address] [place] [address] 06/08/2024 Provider Migration Essential (primary) hypertension I10 Assessments Encounter Date Diagnosis (ICD Code) Assessment Notes Treatment Notes Treatment Clinical Notes Section Notes 06/08/2024 Essential (primary) hypertension (ICD-10 - I10) Plan Of Treatment Pending Test Test Name Order Date Sleep Study 04/07/2022 Insurance Providers Payer Name Payer Address Payer Phone Subscriber Number Group Number Insured Name Patient Relationship to Insured Coverage Start Date Coverage End Date [email or web address] [address] [place] [address] [id number] Doc Baumann Self - patient is the insured Medical (General) History Medical History History ICD Code HTN Diverticulitis Knee issues
--- OUTSIDE RECORDS SUMMARY | 2024-09-26 22:44 | XMS_ITS | Encounter Summary ---
Author Organization [facility] Address [address] [place] [address] Care Team Providers Care Retirement Officer Name Role Phone Eric Dunlap MD Primary Care Provider Encounter Details Date Type Department Care Team (Late st Contact Info) Description 03/21/2013 Conversion Encounter [facility] [address] [place] [address] Interface, See Report Social History Tobacco Use Types Packs/Day Years Used Date Smoking Tobacco: Never Assessed Sex and Gender Information Value Date Recorded Sex Assigned at Not on file Legal Sex Male 10:52 AM EDT Gender Identity Not on file Sexual Orientation Not on file documented as of this encounter ED Notes * Interface, See Report - 03/21/2013 9:35 PM EST Clinical Report - Physicians/Mid Levels [facility] Emergency Department [address] [place] [address] 03/21/2013 Patient: DOC BAUMANN Sex: M : 1990 Age: 22y Arrived- By private vehicle. Historian- patient and family. HISTORY OF PRESENT ILLNESS Chief Complaint: SORE THROAT. This started several days and is still present. It has been constant. Pain described as moderate. The patient has had a sore throat. ( has strep). Similar symptoms previously: Recent medical care: Not recently seen/assessed. REVIEW OF SYSTEMS The patient has had fever and a cough. No eye discomfort, difficulty breathing, chest pain, nausea or diarrhea. No abdominal pain, difficulty with urination, headache, fainting episodes or joint pain. No skin rash, enlarged lymph nodes or vomiting. All systems otherwise negative, except as recorded above. PAST HISTORY Strep throat. Additional Problems: Hypertension. Gastroenteritis. Immunizations. Additional Surgeries: no known surgeries. Medications: Lisinopril Oral 5 mg, daily. Allergies: No Known Drug Allergy. SOCIAL HISTORY Nonsmoker. FAMILY HISTORY Negative. ADDITIONAL NOTES The nursing notes have been reviewed. PHYSICAL EXAM Appearance: Alert. No acute distress. Head: Normal external inspection. Eyes: Pupils equal, round and reactive to light. Conjunctivae and eyelids normal. ENT: Ears normal. Nose normal. Moderate pharyngeal erythema with right tonsillar swelling and exudate and left tonsillar swelling and exudate. No right tonsillar abscess or left tonsillar abscess. Lips normal. Gums normal. No trismus present. Neck: Normal inspection. Mild right anterior neck lymphadenopathy present. Trachea midline. Thyroid normal. Neck supple. CVS: Normal heart rate and rhythm. Heart sounds normal. Pulses normal. Respiratory: No respiratory distress. Breath sounds normal. Chest nontender. Abdomen: Soft and nontender. No organomegaly. Skin: Normal skin color. No rash. Normal skin turgor. Extremities: Extremities exhibit normal ROM. Extremities nontender. Neuro: Oriented X 3. No motor deficit. No sensory deficit. PROGRESS AND PROCEDURES Course of Care: 21:53. 21:53 Mar 21 2013 advised on the ss of worsening condition. all are thankful and agreeable with tx poc. Patient is stable. Disposition: Condition: good and stable. CLINICAL IMPRESSION Pharyngitis INSTRUCTIONS Take Tylenol (Acetaminophen) or Motrin (Ibuprofen) as needed for fever control. Take medication according to label instructions. Do not work for two days (may return to work earlier if better). Drink plenty of fluids. Do not smoke. Prescription Medications: Zithromax 250 mg tablets: take 2 orally today, followed by 1 daily for the next 4 days. No refills. Generic substitute OK. Follow-up: Follow up with your doctor in two days for suture removal. Understanding of the discharge instructions verbalized by patient and family. (Electronically signed by Arsenio Tompkins, N.P. 03/21/2013 22:25) Co-signature 03/22/2013 0:32 Agree with MLP's findings and plan. I reviewed the MLP's note. (Electronically signed by Alexis Trinh M.D. - 03/22/2013 0:32) documented in this encounter Plan of Treatment Not on file documented as of this encounter Procedures Procedure Name Priority Date/Time Associated Diagnosis Comments RAPID STREP SCREEN Routine 03/21/2013 9: 36 PM EST THROAT / UPPER RESPIRATORY CULTURE (REFERENCE) Routine 03/21/2013 9:36 PM EST documented in this encounter Results * Throat culture (03/21/2013 9:36 PM EST) Swab (specimen) 03/21/2013 9:36 PM EST Narrative [facility] - 03/24/2013 11:35 AM EST Specimen Type: Throat [facility] - Culture Throat Specimen: Throat Collected: 03/21/2013 21:36 Status: FINAL Last Updated: 03/24/2013 11:35 Culture Result (CR) (Final) Heavy Growth (CR) Usual Oral Gisselle Isolate (ISO1) (Final) Beta Hemolytic Streptococcus, Group F, Confirmed by Serology (ISO1) Moderate Growth (ISO1) Notify the laboratory to request susceptibility testing if Clindamycin or Erythromycin is the drug of choice. us Alexis Trinh MD MICROBIOLOGY - GENERAL ORDER ASHLEY Final Result Performing Organization Address City/State/[facility] Co de Phone Number [facility] [address] [place] [address], * Rapid strep screen (03/21/2013 9:36 PM EST) Strep A Ag Negative Negative [facility] Comment: US by [id number] @ 03/21/2013 21:56 Negative Strep A antigen results should be considered presumptive. Confirmation by culture to follow. Test performed by [facility] Ant[facility] Testing. Swab (specimen) 03/21/2013 9 :36 PM EST Narrative [facility] - 03/21/2013 9:56 PM EST Specimen Type: Throat Alexis rTinh MD MICROBIOLOGY - GENERAL ORDER ASHLEY Final Result [facility] [address] [place] [address], documented in this encounter Visit Diagnoses Not on filedocumented in this encounter Additional Health Concerns Infection Onset Date Last Indicated Resolved Time Influenza 03/18/2019 03/18/2019 documented as of this encounter Care Teams Retirement Officer Relationship Specialty Start Date End Date Eric Dunlap MD [facility] [address] [place] [address] PCP - General Adolescent Medicine 09/21/23 documented as of this encounter
--- OUTSIDE RECORDS SUMMARY | 2024-09-26 22:44 | XMS_ITS | Clinical Summary ---
Author Organization [facility] Address [address] [place] [address] Care Team Providers Care Washer Off Name Role Phone Eric Dunlap MD Primary Care Provider [phone] Allergies No known active allergies Medications ondansetron (ZOFRAN) 4 MG tablet Take 1 tablet by mouth Every 8 (Eight) Hours As Needed for Nausea or Vomiting. 10 tablet 0 Active triamcinolone (KENALOG) 0.1 % creamIndication s:Poison berry dermatitis Apply 1 Application topically to the appropriate area as directed 2 (Two) Times a Day. 45 g 4 Active Active Problems Problem Noted Date Diagnosed Date Diverticulitis 01/28/2019 Chews tobacco 01/28/2019 Irritable bowel syndrome with diarrhea 9 Family History Medical History Relation Name Comments Diabetes Maternal Grandfather Hyperlipidemia Maternal Grandfather Hypertension Mother Cancer Paternal Grandmother Breast Cancer Relation Name Status Comments Father Alive Maternal Grandfather Alive Mother Alive Paternal Grandmother Alive Social History Tobacco Use Types Packs/Day Years Used Date Smoking Tobacco: Former Smokeless Tobacco: Current Chew Tobacco Cessation:Ready to Q uit: Yes; Counseling Given: No Alcohol Use Standard Drinks/Week Comments Yes 1 (1 standard drink = 0.6 oz pur e alcohol) socially PHQ-2 Answer Date Recorded PHQ-2 Score 0 01/28/2019 Abuse Screen Answer Date Recorded Unsafe at Home or Work/School Not on file Feels Threatened by Someone? Not on file 10/2022 Does Anyone Keep You from Co ntacting Others or Doint Things Outside the Home? Not on file 12/11/2022 Physical Sign of Abuse Present Not on file 1 Housing Stability Answer Date Recorded Current Living Arrangements Not on file 10/2022 Potentially Unsafe Housing Conditions Not on eleonora e 12/11/2022 Family and Community Support Answer Luis e Recorded Help with Day-to-Day Activities Not on file 12/11/2022 Lonely or Isolated Not on file 12/11/2022 Employment Answer Date Recorded Do you want help finding or keeping work or a sarah b? Not on file 12/11/2022 Disabilities Answer Date Recorded Concentrating, Remembering, or Making Decisions Difficulty Not on file 12/11/2022 Doing Errands Independently Difficulty Not on fi le 12/11/2022 Education Answer Date Recorded Help with school or training? Not on file Preferred Language Not on file 12/11/2022 Sex and Gender Information Value Date Recorded Sex Assigned at Not on file Legal Sex Male 10:52 AM EDT Gender Identity Not on file Sexual Orientation Not on file Last Filed Vital Signs Vital Sign Reading Time Taken Comments Blood Pressure 166/105 09/21/2023 1:21 PM EDT Pulse 93 09/21/2023 1:21 PM EDT Temperature 37.1 C (98.7 F) 09/21/2023 1:21 PM EDT Respiratory Rate 14 09/21/2023 1:21 PM EDT Oxygen Saturation 98% 09/21/2023 1:21 PM EDT Inhaled Oxygen Concentration - - Weight 132 kg (290 lb) 09/21/2023 1:21 PM EDT Height 193 cm (6' 4 ) 09/21/2023 1:21 PM EDT Body Mass Index 35.3 09/21/2023 1:21 PM EDT Plan of Treatment Health Maintenance Due Date Last Done Comments TDAP/TD VACCINES (1 - Tdap) 2009 ANNUAL PHYSICAL 09/23/2016 HEPATITIS C SCREENING 09/23/2016 COVID-19 Vaccine (3 2023-2 5 season) 2023 06/12/2020, 05/12/2020 INFLUENZA VACCINE 12/04/2024 Pneumococcal Vaccine 0-49 Aged Out No longer eligible based on patient's age to complete this topic Additional Health Concerns Infection Onset Date Last Indicated Influenza 03/18/2019 03/18/2019 Insurance [facility] Care Teams Washer Off Relationship Specialty Start Date End Date Eric Dunlap MD [facility] [address] [facility] [address] [place] [address] PCP - General Adolescent Medicine 09/21/23
--- OUTSIDE RECORDS SUMMARY | 2024-09-26 22:44 | XMS_ITS | Clinical Summary ---
Author Organization [facility] Address [address] [place] [address] Care Team Providers Care Automotive Vehicle Inspector Name Role Phone Pcp, No Primary Care Provider Unavailabl e Allergies No known active allergies Social History Tobacco Use Types Packs/Day Years Used Date Smoking Tobacco: Never Assessed Sex and Gender Information Value Date Recorded Sex Assigned at Male 03/08/2021 3:21 AM EST Legal Sex Male 8:40 PM EDT Gender Identity Male 03/08/2021 3:21 AM EST Sexual Orientation Straight 03/08/2021 3: 21 AM EST Last Filed Vital Signs Vital Sign Reading Time Taken Comments Blood Pressure 124/78 03/08/2021 2:02 AM EST Pulse 85 03/08/2021 2:02 AM EST Temperature 36.8 C (98.2 F) 03/08/2021 2:02 AM EST Respiratory Rate 19 03/08/2021 2:02 AM EST Oxygen Saturation 99% 03/08/2021 2:02 AM EST Inhaled Oxygen Concentration - - Weight 119 kg (262 lb 2 oz) 03/08/2021 12:21 AM EST Height 193 cm (6' 4 ) 03/08/2021 12:22 AM EST Body Mass Index 31.91 03/08/2021 12:21 AM EST Plan of Treatment Health Maintenance Due Date Last Done Comments [facility]-Depression Screening 1990 [facility]-/Child/Adol SDOH Screenings 1990 [facility]-Varicella Vaccines (1 of 2 - 13+ 2-dose series) 12/07/2003 HPV Vaccines (1 - Male 3-dose series) 2005 [facility]- SDOH Screenings 2008 [facility]-Adult SDOH Screenings 2008 [facility]-DTaP,Tdap,and Td Vaccines (1 - Tdap) 2009 [facility]-Hepatitis B Vaccines (1 of 3 - 19+ 3-dose series) 2009 [id number] Vaccine (3 - 2023-25 season) 2023 06/12/2020, 05/12/2020 [facility]-Influenza Vaccine (#1) 2024 [facility]-Zoster Vaccines (1 of 2) 2040 [facility]-HIB Vaccines Aged Out No longer e ligible based on patient's age to complete this topic [facility]-Hepatitis A Vaccines Aged Out No longer eligible based on patient's age to complete this topic [facility]-IPV Vaccines Aged Out No longer e ligible based on patient's age to complete this topic [facility]-Pneumococcal Vaccine: Pediatrics (0 to 5 Years) and At-Risk Patients (6 to 49 Years) Aged Out No longer eligible b ased on patient's age to complete this topic [facility]-Rotavirus Vaccines Aged Out No lo nger eligible based on patient's age to complete [place] [address] NATALIE Care Teams Automotive Vehicle Inspector Relationship Specialty Start Date End Date Pcp, [place] [address] PCP - General Family Medicine 03/08/21
[2024-09-26 22:45] VITALS: BP 152/104; PULSE 104; RESP 17; TEMP 37.1; O2SAT 99; BMI 34.0
--- NOTE | 2024-09-26 22:51 | CT_ITS ---
PROCEDURE INFORMATION: Exam: CT Abdomen And Pelvis With Contrast Exam date and time: 09/26/2024 11:15 PM Age: 33 years old Clinical indication: Abdominal pain; Additional info: Abdominal pain, HX of diverticulitis, fever TECHNIQUE: Imaging protocol: Computed tomography of the abdomen and pelvis with contrast. Radiation optimization: All CT scans at this facility use at least one of these dose optimization techniques: automated exposure control; mA and/or kV adjustment per patient size (includes targeted exams where dose is matched to clinical indication); or iterative reconstruction. Contrast material: ISOVUE; Contrast volume: 75 ml; Contrast route: IV; COMPARISON: CT ABDOMEN PELVIS W CON 12/30/2020 10:53 PM FINDINGS: Liver: Unremarkable. 3.4 cm inferior hepatic tip cyst. No mass. Gallbladder and biliary ducts: Unremarkable. No calcified stones. No ductal dilation. Pancreas: Unremarkable. No ductal dilation. Spleen: Unremarkable. No splenomegaly. Adrenal glands: Unremarkable. No mass. Kidneys and ureters: No nephroureterolithiasis. No hydronephrosis. Stomach and bowel: Splenic flexure peridiverticular fat stranding with tiny pericolonic fluid collection. Diffuse mid sigmoid colonic wall thickening and peridiverticular fat stranding. Nonobstructive findings. Appendix: No evidence of appendicitis. Intraperitoneal space: Unremarkable. No free air. No significant fluid collection. Vasculature: Unremarkable. No abdominal aortic aneurysm. Lymph nodes: Unremarkable. No enlarged lymph nodes. Urinary bladder: Unremarkable as visualized. Reproductive: Unremarkable as visualized. Bones/joints: Unremarkable. No acute fracture. Soft tissues: Unremarkable. IMPRESSION: Two discontinuous foci of diverticulitis in splenic flexure and sigmoid colon with possible splenic flexure diverticular microperforation.
[2024-09-26 22:57] LABS: Hematocrit 41.2 % (42.0-52.0); Hemoglobin 14.4 g/dL (14.1-18.0); Mean Corpuscular HGB Conc 35.0 g/dL (31.8-35.4); Mean Corpuscular Hemoglobin 30.6 pg (27.0-31.2); Mean Corpuscular Volume 87.5 fl (80-94); Platelet Count 267 K/mm3 (142-424); Red Blood Count 4.71 M/mm3 (4.60-6.20); White Blood Count 16.4 K/mm3 (4.8-10.8)
[2024-09-26] MEDS: LACTATED RINGERS 1000ML 500 ML 999 ML IV (23:02)
[2024-09-26 23:06] LABS: Alanine Aminotransferase 28 U/L (12-78); Albumin Level 4.1 g/dl (3.5-5.0); Albumin/Globulin Ratio 1.1 (1.1-1.8); Alkaline Phosphatase 78 U/L (38-126); Anion Gap 11.6 mEq/L (5-15); Aspartate Amino Transferase 25 U/L (17-59); Bilirubin,Total 0.7 mg/dl (0.2-1.3); Blood Urea Nitrogen 9 mg/dl (9-20); Calcium 9.7 mg/dl (8.4-10.2); Carbon Dioxide 28 mmol/L (22.0-30.0); Chloride 101 mmol/L (98-107); Creatinine Clearance Estimated 210 mL/min (50-200); Creatinine,Serum 0.90 mg/dl (0.66-1.25); Estimated Glomerular Filt Rate 97 ml/min (>60); GFR (African American) 118 ML/MIN (>60); Globulin 3.7 g/dL (1.3-3.2); Glucose 97 mg/dl (74-100); Lipase 47 U/L (23-300); Potassium 3.6 mmoL/L (3.5-5.1); Sodium 137 mmol/L (136-145); Total Protein,Serum 7.8 g/dl (6.3-8.2)
[2024-09-26] MEDS: SODIUM CHLORIDE 0.9% 10ML SYR (RAD ONLY) 10 ML IV (23:18)
[2024-09-26] MEDS: IOPAMIDOL-370 (76%);100ML BOTTLE 75 ML IV (23:18)
--- NOTE | 2024-09-26 23:36 | PC.NURSE ---
pt ambulatory with slow steady gait to restroom to attempt to obtain urine for testing
[2024-09-26 23:42] LABS: Microscopic, Urine URINE MICROSCOPIC (MICROSCOPIC)
[2024-09-26 23:42] LABS: Total Cells Counted 100
[2024-09-26 23:44] LABS: Basophilic Stippling 1+; Poikilocytosis 1+; Polychromasia 1+
[2024-09-26 23:47] LABS: Bilirubin,Urine Negative (Negative); Glucose,Urine (UA) Negative (Negative); Ketones,Urine Negative (Negative); Leukocyte Esterase,Urine Negative (Negative); PH,Urine 7.0 (5.0-8.5); Protein,Urine Negative (Negative); Specific Gravity, Urine <= 1.005 (1.005-1.030); Urobilinogen,Urine 0.2 EU/dl (0.2)
[2024-09-26 23:48] LABS: Color,Urine Yellow (Yellow)
[2024-09-27] VITALS (8 sets, daily range): BP systolic 114–166; BP diastolic 64–94; PULSE 70–96; RESP 16–20; TEMP 36.7–37.1; O2SAT 97–100; BMI 35.5; BMI 35.8
[2024-09-27 00:03] LABS: Bacteria,Urine Trace /lpf; WBC,Urine Occasional #/hpf (0-3)
[2024-09-27 00:16] LABS: Hepatitis C Ab Qual. W/ RFX NEGATIVE (Negative)
--- NOTE | 2024-09-27 00:29 | HMH.EDGENADL ---
Discharge Plan Disposition Patient Disposition: Admitted Condition: Good Clinical Impressions Clinical Impression: Diverticulitis of large intestine with complication Discharge ED Provider: Esteban Boateng General Adult HPI <DO Hayder Doherty Last Filed: 09/27/24 00:36> General Chief complaint: Abdominal Pain Stated complaint: Left side pain above waist line,nausea Time Seen by Provider: 09/26/24 22:45 Mode of Arrival: Ambulatory Source of Information: Patient Description of Symptoms (Recalled from ER Triage Doc. by RN): Patient to Ed with complaints of lower quad abdominal pain that started approx 1100 today. Patient describes sharp pain 09/12. Patient states that he has hx of diverticulitis. States that he was supposed to follow up with GI in [place] but unable to due to other obligations. History of Present Illness HPI narrative: This is a 33-year-old male patient, with past medical history of obstructive sleep apnea and diverticulitis, who is presenting to the emergency department today for evaluation of abdominal pain. Patient states that earlier today he had a bowel movement following this he began experiencing significant left lower quadrant abdominal pain. He has not had any associated hematochezia or melena, vomiting, or hematemesis. He states that this feels similar to his prior episodes of diverticulitis. This evening he took a nap and when he woke up he had a fever of 102 ?F and this combined with his abdominal pain prompted him to come to the emergency department for further evaluation. Before he came to the emergency department he did take NSAIDs and he states that his fever has resolved. He is not currently experiencing any urinary symptoms. Related Data Home Medications ?Medication ?Instructions ?Recorded ?Confirmed No Known Home Medications 04/29/24 05/01/24 Allergies Allergy/AdvReac Type Severity Reaction Status Date / Time Penicillins Allergy Verified 10/04/23 09:08 benadryl AdvReac Mild Uncoded 10/04/23 09:08 PFS <DO Hayder Doherty Last Filed: 09/27/24 00:36> [facility] Disclaimer: The information contained in this section may have been updated after the patient was seen, as this information can be updated by other users. Surgical History (Updated 10/04/23 @ 09:14 by SELAM Mariee) No history of previous surgery Social History (Updated 02/15/23 @ 15:26 by Odalys Leos) Smoking Status: Never smoker alcohol intake: current alcohol intake frequency: holidays/special occasions only substance use type: denies use current occupational status: employed Travel in the last 8 weeks?: None household members: spouse housing: house marital status: number of children: 8 Have you lived/traveled outside [place] in past 30 days?: No Contact w/someone who lives/traveled outside US past 30 days?: No Exposure to someone with infectious disease in past 14 days?: No Do you have a fever (greater than 100.4 F or 38 C)?: No Have you tested positive for COVID-19?: No Exposed to someone with COVID-19 in past 14 days?: No Do you have a sore throat?: No Do you have a cough?: No Do you have any weakness?: No Do you have any diarrhea?: Yes Are you experiencing any unusual bleeding?: No Do you have any muscle aches/pain?: Yes Do you have any abdominal pain?: Yes Are you experiencing loss of taste or smell?: No Other Medical History Have you received the Flu Vaccine for this season: Yes Have you received the Pneumonia Vaccine: No <Esteban Boateng DO - Last Filed: 09/27/24 00:36> ROS Obtained: Yes Systems reviewed as appropriate & no additional complaints except as documented Physical Exam <DO Hayder Doherty Last Filed: 09/27/24 00:36> General General appearance: alert and in no apparent distress Head Head exam: atraumatic and normocephalic Eye Eye exam: Present PERRL and EOMI ENT ENT exam: Present normal oropharynx and mucous membranes moist Neck Neck exam: Present full ROM and trachea midline Respiratory Respiratory exam: Present normal lung sounds bilaterally; Absent respiratory distress Cardiovascular Cardiovascular exam: Present regular rate and normal rhythm Abdominal Exam Abdominal exam: Present soft and tenderness Extremities Exam Extremities exam: Present normal inspection; Absent tenderness Back Exam Back exam: Absent vertebral tenderness Neurological Exam Neurological exam: Present alert and oriented X3 Skin Skin exam: Present warm and dry Medical Decision Making <DO Hayder Doherty Last Filed: 09/27/24 00:36> Medical Records Medical records reviewed: Yes I reviewed the patient's medical records. Screening: Per USPSTF and CDC recommendations, given the prevalence of disease in our region, it is our hospital?s policy to screen for HIV and viral Hepatitis for all patients aged 18 and over and those with ongoing risk factors. Flex Inquiry Pt receiving controlled substance: No Flex was queried for this patient: No Vital Signs: 09/26/24 22:45 09/27/24 00:00 09/27/24 00:38 Temperature 98.7 F Temperature Source Oral Pulse Rate 96 H Pulse Rate [Left] 104 H 70 Respiratory Rate 17 16 Blood Pressure 155/94 H Blood Pressure [Right Arm] 152/104 H 126/64 Blood Pressure Mean 101 Blood Pressure Mean [Right Arm] 120 84 Blood Pressure Source [Right Arm] Automatic Cuff Blood Pressure Position [Right Arm] Sitting 02 Sat by Pulse Oximetry 99 97 100 Oxygen Delivery Method Room Air Room Air 09/27/24 01:08 Temperature 98.7 F Temperature Source Oral Pulse Rate 81 Pulse Rate [Left] Respiratory Rate 18 Blood Pressure 123/77 Blood Pressure [Right Arm] Blood Pressure Mean Blood Pressure Mean [Right Arm] Blood Pressure Source [Right Arm] Blood Pressure Position [Right Arm] 02 Sat by Pulse Oximetry Oxygen Delivery Method Room Air Lab Data Lab Results 09/26/24 22:42: WBC 16.4 H, RBC 4.71, Hgb 14.4, Hct 41.2 L, MCV 87.5, MCH 30.6, MCHC 35.0, RDW 12.8, Plt Count 267, MPV 11.0 H, Neut % (Auto) 72.4, Lymph % (Auto) 19.9, [place] % (Auto) 6.8, Eos % (Auto) 0.3, Baso % (Auto) 0.3, Neut # (Auto) 11.9 H, Lymph # (Auto) 3.3, [place] # (Auto) 1.1 H, Eos # (Auto) 0.1, Baso # (Auto) 0.1, Total Counted 100, Neutrophils % (Manual) 73, Lymphocytes % (Manual) 24, Monocytes % (Manual) 3, Platelet Estimate Normal, Polychromasia 1+, Poikilocytosis 1+, Basophilic Stippling 1+, Sodium 137, Potassium 3.6, Chloride 101, Carbon Dioxide 28, Anion Gap 11.6, BUN 9, Creatinine 0.90, Estimated Creat Clear 210, Estimated GFR 97, Est GFR ( Amer) 118, Glucose 97, Calcium 9.7, Total Bilirubin 0.7, AST 25, ALT 28, Alkaline Phosphatase 78, Total Protein 7.8, Albumin 4.1, Globulin 3.7 H, Albumin/Globulin Ratio 1.1, Lipase 47, HCV Ab SHANIQUE w/Rflx PCR Qn Negative, HIV Ag/Ab Combo Qual Negative 09/26/24 23:35: Urine Color Yellow, Urine Appearance Clear, Urine pH 7.0, Ur Specific [place] <= 1.005, Urine Protein Negative, Urine Glucose (UA) Negative, Urine Ketones Negative, Urine Blood Negative, Urine Nitrate Negative, Urine Bilirubin Negative, Urine Urobilinogen 0.2, Ur Leukocyte Esterase Negative, Urine WBC Occasional, Urine Bacteria Trace 09/27/24 00:00: Lactate 1.4 09/26/24 22:42 09/26/24 22:42 Orders (Tests/Meds): ED MEDICATIONS Generic Name Dose Route Start Last Admin Trade Name Freq PRN Reason Stop Dose Admin Acetaminophen 650 mg 09/27/24 00:38 Acetaminophen 325mg Tab PO 10/27/24 00:37 Q4HP PRN Fever or Mild Pain (1-3) Hydrocodone Bitart/Acetaminophen 1 tab 09/27/24 00:38 Hydrocodone/Apap 5/325 Mg Tablet PO 10/27/24 00:37 Q4HP PRN Mild to Moderate Pain (1-6) Levofloxacin/Dextrose 750 mg in 150 mls @ 100 mls/hr 09/27/24 00:30 Levofloxacin 750mg/150ml Premix IV 10/07/24 00:29 Q24H KAROLINA Metronidazole 500 mg in 100 mls @ 100 mls/hr 09/27/24 00:28 09/27/24 00:55 Flagyl 500mg/100ml Ivpb IV 09/27/24 01:27 100 mls/hr ONCE ONE Administration Metronidazole 500 mg in 100 mls @ 100 mls/hr 09/27/24 08:30 Flagyl 500mg/100ml Ivpb IV 10/07/24 08:29 Q8H KAROLINA Ketorolac Tromethamine 30 mg 09/27/24 00:38 Ketorolac 30mg/Ml Vial IV 10/02/24 00:37 Q6HP PRN Moderate Pain (4-6) Ondansetron HCl 4 mg 09/27/24 00:38 Ondansetron 4mg/2ml Vial IV 10/27/24 00:37 Q8HP PRN Nausea Discontinued Medications Generic Name Dose Route Start Last Admin Trade Name Jazmyn PRN Reason Stop Dose Admin Lactated Ringer's 500 mls @ 999 mls/hr 09/26/24 22:52 09/26/24 23:02 Lactated Ringer's 1000 Ml Bag IV 09/26/24 23:22 999 mls/hr .Q31M ONE Administration Iopamidol 75 ml 09/26/24 23:17 09/26/24 23:18 Iopamidol-370 (76%);100ml Bottle IV 09/26/24 23:18 75 ml ONCE ONE Administration Morphine Sulfate 4 mg 09/26/24 22:52 09/26/24 23:02 Morphine 4mg/Ml Syringe IV 09/26/24 22:53 4 mg ONCE ONE Administration Ondansetron HCl 4 mg 09/26/24 22:52 09/26/24 23:02 Ondansetron 4mg/2ml Vial IV 09/26/24 22:53 4 mg ONCE ONE Administration Sodium Chloride 10 ml 09/26/24 23:17 09/26/24 23:18 Sodium Chloride 0.9% 10ml Syr (Rad Only) IV 09/26/24 23:18 10 ml ONCE ONE Administration ORDERS Category Date Time Status CT abdomen pelvis w con Stat Cat Scan 09/26/24 22:51 Completed Surgery Consult (on-call) [Consult to On-Call Gen'l Cons 09/27/24 07:30 Ordered Surgeon] [CONS] Routine CBC Man Diff [Complete Blood Count Man Dif] Stat Lab 09/26/24 22:42 Completed CMP [Comprehensive Metabolic Panel] Stat Lab 09/26/24 22:42 Completed Complete Blood Count Auto Diff AMLAB Lab 09/27/24 06:00 Ordered Comprehensive Metabolic Panel AMLAB Lab 09/27/24 06:00 Ordered HIV Combo Stat Lab 09/26/24 22:42 Completed Hepatitis C Ab Qual. W/ RFX Stat Lab 09/26/24 22:42 Completed Lactate Venous Stat Lab 09/26/24 22:51 Ordered Lactic Acid Stat Lab 09/27/24 00:00 Completed Lipase Stat Lab 09/26/24 22:42 Completed Magnesium AMLAB Lab 09/27/24 06:00 Ordered Urinalysis and Microscopic Stat Lab 09/26/24 23:35 Completed Blood Culture Stat Micro 09/27/24 00:38 Received Medical Decision Narrative: In summary this is a 33-year-old male patient who is presenting to the emergency department today for evaluation of left lower quadrant abdominal pain with fevers that developed prior to arrival. Comorbidities include a history of diverticulitis which may be contributing to his symptoms today. On initial evaluation of the patient they were resting comfortably in no acute distress and nontoxic in appearance. They are hemodynamically stable, saturating well room air, and are neurologically intact. On physical examination the patient does have left lower quadrant abdominal tenderness to palpation. He is not frankly peritonitic and has no guarding or rebound. He appears distally well-perfused. Differential diagnosis to include diverticulitis, diverticular abscess, colonic perforation, pneumoperitoneum, pancreatitis, urinary tract infection, acute kidney injury, electrolyte derangement, among others Workup was initiated with hematologic labs as well as a CT scan of the abdomen and pelvis with contrast. Labs personally interpreted by me demonstrate a leukocytosis of 16.4. Otherwise the remainder of labs are nonactionable. We have treated the patient in the emergency department with 1 L of lactated Ringer's, 4 mg of morphine, 4 mg of Zofran. On repeat reassessment he is resting comfortably and is in no acute distress. At the time of shift change this patient CT scan was pending. This case was handed off to the oncoming provider who will follow-up on CT scan results and disposition the patient appropriate. <Alexander Raphael MD - Last Filed: 09/27/24 01:14> Vital Signs: 09/26/24 22:45 09/27/24 00:00 09/27/24 00:38 Temperature 98.7 F Temperature Source Oral Pulse Rate 96 H Pulse Rate [Left] 104 H 70 Respiratory Rate 17 16 Blood Pressure 155/94 H Blood Pressure [Right Arm] 152/104 H 126/64 Blood Pressure Mean 101 Blood Pressure Mean [Right Arm] 120 84 Blood Pressure Source [Right Arm] Automatic Cuff Blood Pressure Position [Right Arm] Sitting 02 Sat by Pulse Oximetry 99 97 100 Oxygen Delivery Method Room Air Room Air 09/27/24 01:08 Temperature 98.7 F Temperature Source Oral Pulse Rate 81 Pulse Rate [Left] Respiratory Rate 18 Blood Pressure 123/77 Blood Pressure [Right Arm] Blood Pressure Mean Blood Pressure Mean [Right Arm] Blood Pressure Source [Right Arm] Blood Pressure Position [Right Arm] 02 Sat by Pulse Oximetry Oxygen Delivery Method Room Air Lab Data Lab Results 09/26/24 22:42: WBC 16.4 H, RBC 4.71, Hgb 14.4, Hct 41.2 L, MCV 87.5, MCH 30.6, MCHC 35.0, RDW 12.8, Plt Count 267, MPV 11.0 H, Neut % (Auto) 72.4, Lymph % (Auto) 19.9, [place] % (Auto) 6.8, Eos % (Auto) 0.3, Baso % (Auto) 0.3, Neut # (Auto) 11.9 H, Lymph # (Auto) 3.3, [place] # (Auto) 1.1 H, Eos # (Auto) 0.1, Baso # (Auto) 0.1, Total Counted 100, Neutrophils % (Manual) 73, Lymphocytes % (Manual) 24, Monocytes % (Manual) 3, Platelet Estimate Normal, Polychromasia 1+, Poikilocytosis 1+, Basophilic Stippling 1+, Sodium 137, Potassium 3.6, Chloride 101, Carbon Dioxide 28, Anion Gap 11.6, BUN 9, Creatinine 0.90, Estimated Creat Clear 210, Estimated GFR 97, Est GFR ( Amer) 118, Glucose 97, Calcium 9.7, Total Bilirubin 0.7, AST 25, ALT 28, Alkaline Phosphatase 78, Total Protein 7.8, Albumin 4.1, Globulin 3.7 H, Albumin/Globulin Ratio 1.1, Lipase 47, HCV Ab SHANIQUE w/Rflx PCR Qn Negative, HIV Ag/Ab Combo Qual Negative 09/26/24 23:35: Urine Color Yellow, Urine Appearance Clear, Urine pH 7.0, Ur Specific [place] <= 1.005, Urine Protein Negative, Urine Glucose (UA) Negative, Urine Ketones Negative, Urine Blood Negative, Urine Nitrate Negative, Urine Bilirubin Negative, Urine Urobilinogen 0.2, Ur Leukocyte Esterase Negative, Urine WBC Occasional, Urine Bacteria Trace 09/27/24 00:00: Lactate 1.4 Orders (Tests/Meds): ED MEDICATIONS Generic Name Dose Route Start Last Admin Trade Name Freq PRN Reason Stop Dose Admin Acetaminophen 650 mg 09/27/24 00:38 Acetaminophen 325mg Tab PO 10/27/24 00:37 Q4HP PRN Fever or Mild Pain (1-3) Hydrocodone Bitart/Acetaminophen 1 tab 09/27/24 00:38 Hydrocodone/Apap 5/325 Mg Tablet PO 10/27/24 00:37 Q4HP PRN Mild to Moderate Pain (1-6) Levofloxacin/Dextrose 750 mg in 150 mls @ 100 mls/hr 09/27/24 00:30 Levofloxacin 750mg/150ml Premix IV 10/07/24 00:29 Q24H [place] Metronidazole 500 mg in 100 mls @ 100 mls/hr 09/27/24 00:28 09/27/24 00:55 Flagyl 500mg/100ml Ivpb IV 09/27/24 01:27 100 mls/hr ONCE ONE Administration Metronidazole 500 mg in 100 mls @ 100 mls/hr 09/27/24 08:30 Flagyl 500mg/100ml Ivpb IV 10/07/24 08:29 Q8H KAR[place]INA Ketorolac Tromethamine 30 mg 09/27/24 00:38 Ketorolac 30mg/Ml Vial IV 10/02/24 00:37 Q6HP PRN Moderate Pain (4-6) Ondansetron HCl 4 mg 09/27/24 00:38 Ondansetron 4mg/2ml Vial IV 10/27/24 00:37 Q8HP PRN Nausea Discontinued Medications Generic Name Dose Route Start Last Admin Trade Name Freq PRN Reason Stop Dose Admin Lactated Ringer's 500 mls @ 999 mls/hr 09/26/24 22:52 09/26/24 23:02 Lactated Ringer's 1000 Ml Bag IV 09/26/24 23:22 999 mls/hr .Q31M ONE Administration Iopamidol 75 ml 09/26/24 23:17 09/26/24 23:18 Iopamidol-370 (76%);100ml Bottle IV 09/26/24 23:18 75 ml ONCE ONE Administration Morphine Sulfate 4 mg 09/26/24 22:52 09/26/24 23:02 Morphine 4mg/Ml Syringe IV 09/26/24 22:53 4 mg ONCE ONE Administration Ondansetron HCl 4 mg 09/26/24 22:52 09/26/24 23:02 Ondansetron 4mg/2ml Vial IV 09/26/24 22:53 4 mg ONCE ONE Administration Sodium Chloride 10 ml 09/26/24 23:17 09/26/24 23:18 Sodium Chloride 0.9% 10ml Syr (Rad Only) IV 09/26/24 23:18 10 ml ONCE ONE Administration ORDERS Category Date Time Status CT abdomen pelvis w con Stat Cat Scan 09/26/24 22:51 Completed Surgery Consult (on-call) [Consult to On-Call Gen'l Cons 09/27/24 07:30 Ordered Surgeon] [CONS] Routine CBC Man Diff [Complete Blood Count Man Dif] Stat Lab 09/26/24 22:42 Completed CMP [Comprehensive Metabolic Panel] Stat Lab 09/26/24 22:42 Completed Complete Blood Count Auto Diff AMLAB Lab 09/27/24 06:00 Ordered Comprehensive Metabolic Panel AMLAB Lab 09/27/24 06:00 Ordered HIV Combo Stat Lab 09/26/24 22:42 Completed Hepatitis C Ab Qual. W/ RFX Stat Lab 09/26/24 22:42 Completed Lactate Venous Stat Lab 09/26/24 22:51 Ordered Lactic Acid Stat Lab 09/27/24 00:00 Completed Lipase Stat Lab 09/26/24 22:42 Completed Magnesium AMLAB Lab 09/27/24 06:00 Ordered Urinalysis and Microscopic Stat Lab 09/26/24 23:35 Completed Blood Culture Stat Micro 09/27/24 00:38 Received Tissue Perfus/Sepsis Re-Eval Sepsis Re-Evaluation Performed: Yes Date Performed: 09/27/24 Time Performed: 00:05 Medical Decision Narrative: In summary this is a 33-year-old male patient who is presenting to the emergency department today for evaluation of left lower quadrant abdominal pain with fevers that developed prior to arrival. Comorbidities include a history of diverticulitis which may be contributing to his symptoms today. On initial evaluation of the patient they were resting comfortably in no acute distress and nontoxic in appearance. They are hemodynamically stable, saturating well room air, and are neurologically intact. On physical examination the patient does have left lower quadrant abdominal tenderness to palpation. He is not frankly peritonitic and has no guarding or rebound. He appears distally well-perfused. Differential diagnosis to include diverticulitis, diverticular abscess, colonic perforation, pneumoperitoneum, pancreatitis, urinary tract infection, acute kidney injury, electrolyte derangement, among others Workup was initiated with hematologic labs as well as a CT scan of the abdomen and pelvis with contrast. Labs personally interpreted by me demonstrate a leukocytosis of 16.4. Otherwise the remainder of labs are nonactionable. We have treated the patient in the emergency department with 1 L of lactated Ringer's, 4 mg of morphine, 4 mg of Zofran. On repeat reassessment he is resting comfortably and is in no acute distress. At the time of shift change this patient CT scan was pending. This case was handed off to the oncoming provider who will follow-up on CT scan results and disposition the patient appropriate. Donavon JOHNSON: I assumed care of the patient at the time of handoff from the prior provider. On reassessment, patient harsha hemodynamically stable and well-appearing. CT imaging shows 2 areas of diverticulitis with a possible microperforation along the splenic flexure. I personally do not see any obvious free air, but there may be a small fluid collection adjacent to the colon in this area with significant stranding. I discussed with the patient that I would recommend coming to the hospital for IV antibiotics given his complicated diverticulitis. He initially was hesitant but ultimately decided that he was agreeable for admission. Blood cultures were obtained and patient was initiated on Levaquin and Flagyl. No indication for large-volume fluid resuscitation at this time. Interactive discussion was had with the hospitalist on-call for admission. Critical Care <Esteban Boateng, - Last Filed: 09/27/24 00:36> Critical Care Time Critical Care Time: No
--- NOTE | 2024-09-27 00:40 | EXP.HP ---
History of Present Illness *Admission Date: 09/27/24 *Reason for visit:: abdominal pain *History of present illness: Mr. Baumann is a 33-year-old male who reports history of diverticulitis over the past few years. First episode began in 2019. Also has a history of obesity and sleep apnea. Came in to the ER because of onset of abdominal pain within the past 24 hours. Accompanied by chills. Says he woke up at home with a fever of 102. In light of the abdominal pain and fever, came into the ER for further evaluation. Pain sharp radiating in the left lower abdomen. 7 out of 10. Denies diana nausea or vomiting. Has loose stools on a daily basis. Denies any chest pain or shortness of breath. Workup in the ER with white count of 16, heart rate in the 90s, CT of the abdomen showing diverticulitis with questionable microperforation. Medicine consulted for admission and further management On arrival to the floor, patient has a spouse at bedside. Alert and oriented x 4. Able to give good history. Hemodynamically stable. On room air. Receiving antibiotics. Focal pain on exam in left upper quadrant. Reports not having followed with GI or surgery in the past. Was supposed to get a colonoscopy but never was able to coordinate scheduling. Tries to manage it with diet at home. Denies urinary symptoms or blood in stool [facility] Disclaimer: The information contained in this section may have been updated after the patient was seen, as this information can be updated by other users. Surgical History No history of previous surgery Social History Smoking Status: Never smoker alcohol intake: never substance use type: denies use current occupational status: employed Travel in the last 8 weeks?: None household members: spouse housing: house marital status: number of children: 8 Have you lived/traveled outside US in past 30 days?: No Contact w/someone who lives/traveled outside US past 30 days?: No Exposure to someone with infectious disease in past 14 days?: No Do you have a fever (greater than 100.4 F or 38 C)?: No Have you tested positive for COVID-19?: No Exposed to someone with COVID-19 in past 14 days?: No Do you have a sore throat?: No Do you have a cough?: No Do you have any weakness?: No Are you experiencing any nausea/vomitting?: No Do you have any diarrhea?: Yes Are you experiencing any unusual bleeding?: No Do you have any muscle aches/pain?: Yes Do you have any abdominal pain?: Yes Are you experiencing loss of taste or smell?: No Other Medical History Have you received the Flu Vaccine for this season: Yes Have you received the Pneumonia Vaccine: No Review of Systems Review of Systems Review of systems (narrative): 14 point review of systems performed, pertinent positives and negatives as per [facility] Meds Home Medications and Allergies Home Medications ?Medication ?Instructions ?Recorded ?Confirmed ?Type No Known Home Medications 04/29/24 05/01/24 History New Prescriptions to Start Prescriptions: Allergies Allergy/AdvReac Type Severity Reaction Status Date / Time Penicillins Allergy Verified 10/04/23 09:08 benadryl AdvReac Mild Uncoded 10/04/23 09:08 Exam Data for Last 24 hours Vital signs and Labs for Last 24 Hours: Temp Pulse Resp BP Pulse Ox O2 Del Method 98.7 F 96 H 17 155/94 H 97 Room Air 09/26/24 22:45 09/27/24 00:00 09/26/24 22:45 09/27/24 00:00 09/27/24 00:00 09/26/24 22:45 Laboratory Results - last 24 hr 09/26/24 22:42: WBC 16.4 H, RBC 4.71, Hgb 14.4, Hct 41.2 L, MCV 87.5, MCH 30.6, MCHC 35.0, RDW 12.8, Plt Count 267, MPV 11.0 H, Neut % (Auto) 72.4, Lymph % (Auto) 19.9, [place] % (Auto) 6.8, Eos % (Auto) 0.3, Baso % (Auto) 0.3, Neut # (Auto) 11.9 H, Lymph # (Auto) 3.3, [place] # (Auto) 1.1 H, Eos # (Auto) 0.1, Baso # (Auto) 0.1, Total Counted 100, Neutrophils % (Manual) 73, Lymphocytes % (Manual) 24, Monocytes % (Manual) 3, Platelet Estimate Normal, Polychromasia 1+, Poikilocytosis 1+, Basophilic Stippling 1+, Sodium 137, Potassium 3.6, Chloride 101, Carbon Dioxide 28, Anion Gap 11.6, BUN 9, Creatinine 0.90, Estimated Creat Clear 210, Estimated GFR 97, Est GFR ( Amer) 118, Glucose 97, Calcium 9.7, Total Bilirubin 0.7, AST 25, ALT 28, Alkaline Phosphatase 78, Total Protein 7.8, Albumin 4.1, Globulin 3.7 H, Albumin/Globulin Ratio 1.1, Lipase 47, HCV Ab SHANIQUE w/Rflx PCR Qn Negative, HIV Ag/Ab Combo Qual Negative 09/26/24 23:35: Urine Color Yellow, Urine Appearance Clear, Urine pH 7.0, Ur Specific [place] <= 1.005, Urine Protein Negative, Urine Glucose (UA) Negative, Urine Ketones Negative, Urine Blood Negative, Urine Nitrate Negative, Urine Bilirubin Negative, Urine Urobilinogen 0.2, Ur Leukocyte Esterase Negative, Urine WBC Occasional, Urine Bacteria Trace 09/27/24 00:00: Lactate 1.4 I & O for Last 24 hours: Intake & Output 09/24/24 09/25/24 09/26/24 09/27/24 23:59 23:59 23:59 23:59 Weight 127.006 kg Constitutional Constitutional: no acute distress, obese and cooperative *Routine HEENT Exam Head: Present normocephalic Eye: Present EOMI and PERRL ENT: Present mucous membranes moist *Routine Neck Exam Neck: Present supple; Absent lymphadenopathy *Routine Respiratory Exam Respiratory: Present CTA bilaterally; Absent rhonchi, wheezes or crackles *Routine Cardiovascular Exam Cardiovascular: Present RRR *Routine Abdominal Exam Abdominal: Present soft, normoactive bowel sounds and tenderness (Focal left lateral upper abdomen); Absent rebound or guarding *Routine Rectal Exam Rectal:: deferred *Routine Genitalia Exam Genitalia:: deferred *Routine Extremities Exam Extremities: Absent cyanosis, clubbing or edema *Routine Skin Exam Skin: Present intact and warm; Absent rash *Routine Neurological Exam Neurological: Present alert, oriented X3 and moving all extremities; Absent altered mental status Assessment and Plan *Assessment and plan (1) Diverticulitis of large intestine with complication: Status: Acute Category: Medical Code(s): K57.32 - Diverticulitis of large intestine without perforation or abscess without bleeding (2) Sepsis: Status: Acute Category: Medical Code(s): A41.9 - Sepsis, unspecified organism (3) BMI 35.0-35.9,adult: Status: Chronic Category: Medical Code(s): Z68.35 - Body mass index [BMI] 35.0-35.9, adult Plan 33-year-old male who presented with abdominal pain. Found to have diverticulitis on CT abdomen with possible perforation. Heart rate in the 90s, white count 16.4. Findings of inflammation and infection with suspected perforation of diverticulum on CT of abdomen. Meeting sepsis criteria. Discussed case with ER physician, request admission for IV antibiotics and further management. I decided to admit. Will have surgery evaluate in the morning. No acute need for intervention at this time. Will need discussion about possible partial colectomy in the future given recurrent nature of his diverticulitis. Problems addressed as follows: Complicated diverticulitis Suspected microperforation Sepsis - White count of 16.4, heart rate mid 90s on presentation, focal source of infection on review of CT per my evaluation at the splenic flexure and sigmoid colon. -Reports multiple previous episodes, most recently one year ago - Continue Levaquin 750 mg daily, Flagyl 500 mg IV 3 times a day. - Surgery consulted to evaluate the patient in the morning - Repeat CBC, CMP, magnesium ordered for the morning. Will also obtain CRP and ESR - Urine unremarkable, blood cultures pending - Multimodal pain control with Toradol 30 mg IV every 6 hours as needed, Tylenol 650 mg as needed every 4 hours, hydrocodone 5 mg every 6 hours. Monitor for toxicity Complicates all aspects of his care Blood pressure elevated 166/85. On no home medications. In setting of pain and infection, will hold on blood pressure treatment. Further evaluation during admission Full code Lovenox 40 mg subcu daily N.p.o. pending surgery eval
[2024-09-27] MEDS: METRONIDAZ/SOD CHL 500 MG/100 ML PIGGYBACK 100 MG IV ×3 (00:55→16:25)
--- NOTE | 2024-09-27 01:08 | PC.NURSE ---
Report given to DAVID Santillan
[2024-09-27] MEDS: LEVOFLOXACIN/D5W 750 MG/150 ML 750 MG/150 ML PIGGYBACK 100 MG IV (01:54)
[2024-09-27] MEDS: ACETAMINOPHEN 325MG TAB 650 MG PO ×3 (02:47→22:37)
[2024-09-27 06:43] LABS: Hematocrit 40.0 % (42.0-52.0); Hemoglobin 13.6 g/dL (14.1-18.0); Immature Granulocytes % 0.3 %; Mean Corpuscular HGB Conc 34.0 g/dL (31.8-35.4); Mean Corpuscular Hemoglobin 30.3 pg (27.0-31.2); Mean Corpuscular Volume 89.1 fl (80-94); Nucleated Red Blood Cells % 0 %; Platelet Count 221 K/mm3 (142-424); Red Blood Count 4.49 M/mm3 (4.60-6.20); Red Cell Distribution Width-SD 42.0 fL; White Blood Count 13.5 K/mm3 (4.8-10.8)
--- NOTE | 2024-09-27 06:51 | EXP.SURG.CON ---
History of Present Illness *Admission Date: 09/27/24 *Reason for visit:: Diverticulitis *History of present illness: This is a 33-year-old gentleman seen in consultation after presenting to the emergency department with increasing abdominal pain. Evaluation included a CT scan that revealed splenic flexure peridiverticular fat stranding with small pericolonic fluid collection, as well as, diffuse mid sigmoid colonic wall thickening and peridiverticular fat stranding. See HPI forwarded from admission H&P below. Forwarded from admission H&P: Mr. Baumann is a 33-year-old male who reports history of diverticulitis over the past few years. First episode began in 2019. Also has a history of obesity and sleep apnea. Came in to the ER because of onset of abdominal pain within the past 24 hours. Accompanied by chills. Says he woke up at home with a fever of 102. In light of the abdominal pain and fever, came into the ER for further evaluation. Pain sharp radiating in the left lower abdomen. 7 out of 10. Denies diana nausea or vomiting. Has loose stools on a daily basis. Denies any chest pain or shortness of breath. Workup in the ER with white count of 16, heart rate in the 90s, CT of the abdomen showing diverticulitis with questionable microperforation. Medicine consulted for admission and further management On arrival to the floor, patient has a spouse at bedside. Alert and oriented x 4. Able to give good history. Hemodynamically stable. On room air. Receiving antibiotics. Focal pain on exam in left upper quadrant. Reports not having followed with GI or surgery in the past. Was supposed to get a colonoscopy but never was able to coordinate scheduling. Tries to manage it with diet at home. Denies urinary symptoms or blood in stool [facility] Disclaimer: The information contained in this section may have been updated after the patient was seen, as this information can be updated by other users. Surgical History No history of previous surgery Social History Smoking Status: Never smoker alcohol intake: never substance use type: denies use current occupational status: employed Travel in the last 8 weeks?: None household members: spouse housing: house marital status: number of children: 8 Have you lived/traveled outside US in past 30 days?: No Contact w/someone who lives/traveled outside US past 30 days?: No Exposure to someone with infectious disease in past 14 days?: No Do you have a fever (greater than 100.4 F or 38 C)?: No Have you tested positive for COVID-19?: No Exposed to someone with COVID-19 in past 14 days?: No Do you have a sore throat?: No Do you have a cough?: No Do you have any weakness?: No Are you experiencing any nausea/vomitting?: No Do you have any diarrhea?: Yes Are you experiencing any unusual bleeding?: No Do you have any muscle aches/pain?: Yes Do you have any abdominal pain?: Yes Are you experiencing loss of taste or smell?: No Review of Systems Review of Systems Review of systems:: pertinent systems reviewed and negative unless documented below Meds Home Medications and Allergies Home Medications ?Medication ?Instructions ?Recorded ?Confirmed ?Type No Known Home Medications 04/29/24 05/01/24 History New Prescriptions to Start Prescriptions: Allergies Allergy/AdvReac Type Severity Reaction Status Date / Time Penicillins Allergy Verified 10/04/23 09:08 benadryl AdvReac Mild Uncoded 10/04/23 09:08 Exam (Inpt) Vital signs and Labs for Last 24 Hours: Temp Pulse Resp BP Pulse Ox O2 Del Method 98.5 F 81 18 114/69 97 Room Air 09/27/24 04:00 09/27/24 04:00 09/27/24 04:00 09/27/24 04:00 09/27/24 04:00 09/27/24 06:45 Laboratory Results - last 24 hr 09/26/24 22:42: WBC 16.4 H, RBC 4.71, Hgb 14.4, Hct 41.2 L, MCV 87.5, MCH 30.6, MCHC 35.0, RDW 12.8, Plt Count 267, MPV 11.0 H, Neut % (Auto) 72.4, Lymph % (Auto) 19.9, [place] % (Auto) 6.8, Eos % (Auto) 0.3, Baso % (Auto) 0.3, Neut # (Auto) 11.9 H, Lymph # (Auto) 3.3, [place] # (Auto) 1.1 H, Eos # (Auto) 0.1, Baso # (Auto) 0.1, Total Counted 100, Neutrophils % (Manual) 73, Lymphocytes % (Manual) 24, Monocytes % (Manual) 3, Platelet Estimate Normal, Polychromasia 1+, Poikilocytosis 1+, Basophilic Stippling 1+, Sodium 137, Potassium 3.6, Chloride 101, Carbon Dioxide 28, Anion Gap 11.6, BUN 9, Creatinine 0.90, Estimated Creat Clear 210, Estimated GFR 97, Est GFR ( Amer) 118, Glucose 97, Calcium 9.7, Total Bilirubin 0.7, AST 25, ALT 28, Alkaline Phosphatase 78, Total Protein 7.8, Albumin 4.1, Globulin 3.7 H, Albumin/Globulin Ratio 1.1, Lipase 47, HCV Ab SHANIQUE w/Rflx PCR Qn Negative, HIV Ag/Ab Combo Qual Negative 09/26/24 23:35: Urine Color Yellow, Urine Appearance Clear, Urine pH 7.0, Ur Specific [place] <= 1.005, Urine Protein Negative, Urine Glucose (UA) Negative, Urine Ketones Negative, Urine Blood Negative, Urine Nitrate Negative, Urine Bilirubin Negative, Urine Urobilinogen 0.2, Ur Leukocyte Esterase Negative, Urine WBC Occasional, Urine Bacteria Trace 09/27/24 00:00: Lactate 1.4 I & O for Labs for Last 24 Hours: Intake & Output 09/24/24 09/25/24 09/26/24 09/27/24 11:59 11:59 11:59 11:59 Intake Total 250 / 250 Balance 250 / 250 Weight 294 lb 2.252 oz Constitutional: no acute distress Respiratory: Absent respiratory distress Cardiac: Absent Tachycardia GI: Present soft and tenderness Results Labs 09/27/24 06:25 09/26/24 22:42 Labs: Laboratory Results - last 24 hr 09/26/24 22:42: WBC 16.4 H, RBC 4.71, Hgb 14.4, Hct 41.2 L, MCV 87.5, MCH 30.6, MCHC 35.0, RDW 12.8, Plt Count 267, MPV 11.0 H, Neut % (Auto) 72.4, Lymph % (Auto) 19.9, [place] % (Auto) 6.8, Eos % (Auto) 0.3, Baso % (Auto) 0.3, Neut # (Auto) 11.9 H, Lymph # (Auto) 3.3, [place] # (Auto) 1.1 H, Eos # (Auto) 0.1, Baso # (Auto) 0.1, Total Counted 100, Neutrophils % (Manual) 73, Lymphocytes % (Manual) 24, Monocytes % (Manual) 3, Platelet Estimate Normal, Polychromasia 1+, Poikilocytosis 1+, Basophilic Stippling 1+, Sodium 137, Potassium 3.6, Chloride 101, Carbon Dioxide 28, Anion Gap 11.6, BUN 9, Creatinine 0.90, Estimated Creat Clear 210, Estimated GFR 97, Est GFR ( Amer) 118, Glucose 97, Calcium 9.7, Total Bilirubin 0.7, AST 25, ALT 28, Alkaline Phosphatase 78, Total Protein 7.8, Albumin 4.1, Globulin 3.7 H, Albumin/Globulin Ratio 1.1, Lipase 47, HCV Ab SHANIQUE w/Rflx PCR Qn Negative, HIV Ag/Ab Combo Qual Negative 09/26/24 23:35: Urine Color Yellow, Urine Appearance Clear, Urine pH 7.0, Ur Specific [place] <= 1.005, Urine Protein Negative, Urine Glucose (UA) Negative, Urine Ketones Negative, Urine Blood Negative, Urine Nitrate Negative, Urine Bilirubin Negative, Urine Urobilinogen 0.2, Ur Leukocyte Esterase Negative, Urine WBC Occasional, Urine Bacteria Trace 09/27/24 00:00: Lactate 1.4 Assessment and Plan *Assessment and plan (1) Diverticulitis of large intestine with complication: Status: Acute Category: Medical Code(s): K57.32 - Diverticulitis of large intestine without perforation or abscess without bleeding Plan: Somewhat complicated/recurrent diverticulitis. No need for emergent surgical intervention. Continue antibiotic coverage as per primary service. If he does not continue to improve on Levaquin/Flagyl, antibiotic coverage alteration to Zosyn, Invanz, or Primaxin reasonable. Colonoscopy in 6-8 weeks Discussion with regard to elective resection will be ongoing
[2024-09-27 07:06] LABS: Alanine Aminotransferase 21 U/L (12-78); Albumin Level 3.5 g/dl (3.5-5.0); Albumin/Globulin Ratio 1.1 (1.1-1.8); Alkaline Phosphatase 75 U/L (38-126); Anion Gap 10.4 mEq/L (5-15); Aspartate Amino Transferase 23 U/L (17-59); Bilirubin,Total 0.6 mg/dl (0.2-1.3); Blood Urea Nitrogen 9 mg/dl (9-20); Calcium 9.2 mg/dl (8.4-10.2); Carbon Dioxide 27 mmol/L (22.0-30.0); Chloride 103 mmol/L (98-107); Creatinine Clearance Estimated 248 mL/min (50-200); Creatinine,Serum 0.80 mg/dl (0.66-1.25); Estimated Glomerular Filt Rate 111 ml/min (>60); GFR (African American) 135 ML/MIN (>60); Globulin 3.2 g/dL (1.3-3.2); Glucose 107 mg/dl (74-100); Magnesium 1.7 mg/dl (1.6-2.3); Potassium 3.4 mmoL/L (3.5-5.1); Sodium 137 mmol/L (136-145); Total Protein,Serum 6.7 g/dl (6.3-8.2)
[2024-09-27 07:14] LABS: C-Reactive Protein 84.3 mg/L (0-4)
--- NOTE | 2024-09-27 08:35 | HMH.PHAINT1 ---
Pharmacy Intervention Comments: PER PT INTERVIEW, PT TAKES NO HOME MEDCIATIONS
--- OUTSIDE RECORDS SUMMARY | 2024-09-27 09:35 | XMS_ITS | Encounter Summary ---
Author Organization [facility] Address [address] [place] [address] Care Team Providers Care Substation Mechanic Name Role Phone Eric Dunlap MD Primary Care Provider [phone] Encounter Details Date Type Department Care Team (Late st Contact Info) Description 03/21/2013 Conversion Encounter [facility] HISTORICAL CONV [address] [address] Interface, See Report Social History [...] PM EST Clinical Report - Physicians/Mid Levels [facility] Emergency Department [address] [place] [address] 03/21/2013 Patient: DOC BAUMANN Sex: M : [...] Swab (specimen) 03/21/2013 9:36 PM EST Narrative [facility] - 03/24/2013 11:35 AM EST Specimen Type: Throat [facility] - Culture Throat Specimen: Throat [...] ORDER ASHLEY Final Result Performing Organization Address City/State/[facility] [[email or web address]] Co de Phone Number [facility] [address] [place] [address], * Rapid strep screen (03/21/2013 9:36 PM EST) Strep A Ag Negative Negative [facility] Comment: [place] by [id number] @ 03/21/2013 21:56 Negative Strep A antigen results should be considered presumptive. Confirmation by culture to follow. Test performed by Direct Antigen Testing. Swab (specimen) 03/21/2013 9 :36 PM EST Narrative [facility] - 03/21/2013 9:56 PM EST Specimen Type: Throat Alexis Trinh MD MICROBIOLOGY - GENERAL ORDER ASHLEY Final Result [facility] [address] [place] [address], documented in this encounter Visit Diagnoses Not on filedocumented in this encounter Additional Health Concerns Infection Onset Date Last Indicated Resolved Time Influenza 03/18/2019 03/18/2019 documented as of this encounter Care Teams Substation Mechanic Relationship Specialty Start Date End Date Eric Dunlap MD [facility] [address] [place] [address] PCP - General Adolescent Medicine 09/21/23 documented as of this encounter
--- OUTSIDE RECORDS SUMMARY | 2024-09-27 09:35 | XMS_ITS | Clinical Summary ---
Author Organization [facility] Address [address] [place] [address] Care Team Providers Care Interlocking Installer Name Role Phone Pcp, No Primary Care [...] of 3 - 19+ 3-dose series) 2009 [id number] Vaccine (3 - 2023-25 season) 2023 06/12/2020, [...] to [place] [address] NATALIE Care Teams Interlocking Installer Relationship Specialty Start Date End Date Pcp, [place] [address] PCP - General Family Medicine 03/08/21
--- OUTSIDE RECORDS SUMMARY | 2024-09-27 09:35 | XMS_ITS | Clinical Summary ---
Author Organization [facility] Address [address] [place] [address] Care Team Providers Care Skilled Helper Name Role Phone Eric Dunlap MD Primary Care Provider [phone] Allergies No known active allergies Medications ondansetron [...] Date Last Indicated Influenza 03/18/2019 03/18/2019 Insurance [facility] Care Teams Skilled Helper Relationship Specialty Start Date End Date Eric Dunlap MD [facility] [address] [facility] [address] [place] [address] PCP - General Adolescent Medicine 09/21/23
--- OUTSIDE RECORDS SUMMARY | 2024-09-27 09:36 | XMS_ITS | Patient Health Record ---
Author Organization [facility] Address [address] [place] [address] [place] [address] Care Team Providers Care Hopper Operator Name Role Phone Yousif Daniel Primary Care [...] *Please review and pick correct strength-formulation from [employer] options. If intended option is not shown, [...] W/U Status Risk Notes Problem Essential hypertension (42687186) Essential (primary) hypertension (I10) Active confirmed Problem Excessive thirst (65963239) Polydipsia (R63.1) Active confirmed Problem Constipation by delayed colonic transit (21144392) Constipation by delayed colonic transit (K59.01) Active confirmed Problem Obstructive sleep apnea syndrome (26997086) [place] (obstructive sleep apnea) (G47.33) Active confirmed Problem Diverticular disease of colon (817937382) Diverticulosis (K57.90) Active confirmed Problem Arthritis of both knees (878657800615238 [id number]) Arthritis of both knees (M17.0) Active confirmed Encounters Encounter Location Date Provider Diagnosis [facility] [address] [place] [address] 06/08/2024 Provider Migration Essential (primary) hypertension I10 [...] Insured Coverage Start Date Coverage End Date [facility] [address] [place] [address] [id number] Doc Baumann Self - patient is the insured Medical (General) History Medical History History ICD Code HTN Diverticulitis Knee issues
[2024-09-27] MEDS: KETOROLAC 30MG/ML VIAL 30 MG IV (16:26)
--- NOTE | 2024-09-27 18:20 | PC.NURSE ---
Pt is alert and oriented x4. He reports tenderness to ll and luq of abdomen. Treated x2 for pain with relief noted on reassessment. He has tolerated his diet. Reports having 1 bm this shift. He remains on RA. He has no questions or concerns at this time. Bed is locked and in the lowest position, call light is within reach.
[2024-09-28] MEDS: METRONIDAZ/SOD CHL 500 MG/100 ML PIGGYBACK 100 MG IV ×2 (00:04→08:34)
[2024-09-28] MEDS: KETOROLAC 30MG/ML VIAL 30 MG IV (00:28)
[2024-09-28] MEDS: LEVOFLOXACIN/D5W 750 MG/150 ML 750 MG/150 ML PIGGYBACK 100 MG IV (01:15)
[2024-09-28 04:00] VITALS: BP 129/78; PULSE 68; RESP 16; TEMP 36.4; O2SAT 96; BMI 36.2
--- NOTE | 2024-09-28 04:05 | PC.NURSE ---
Pt is A&Ox4. Pt is on RA. Pt bowel sounds active. Pt has had no acute changes overnight. Pt medicated per MAY. Pt has not voiced any further concerns. Pt resting w/ call light in reach. POC ongoing.
[2024-09-28 06:51] LABS: Hematocrit 41.7 % (42.0-52.0); Hemoglobin 14.2 g/dL (14.1-18.0); Immature Granulocytes % 0.5 %; Mean Corpuscular HGB Conc 34.1 g/dL (31.8-35.4); Mean Corpuscular Hemoglobin 30.7 pg (27.0-31.2); Mean Corpuscular Volume 90.1 fl (80-94); Nucleated Red Blood Cells % 0 %; Platelet Count 247 K/mm3 (142-424); Red Blood Count 4.63 M/mm3 (4.60-6.20); Red Cell Distribution Width-SD 42.4 fL; White Blood Count 11.9 K/mm3 (4.8-10.8)
[2024-09-28 07:04] LABS: Anion Gap 12.7 mEq/L (5-15); Blood Urea Nitrogen 7 mg/dl (9-20); Calcium 9.6 mg/dl (8.4-10.2); Carbon Dioxide 27 mmol/L (22.0-30.0); Chloride 103 mmol/L (98-107); Creatinine Clearance Estimated 251 mL/min (50-200); Creatinine,Serum 0.80 mg/dl (0.66-1.25); Estimated Glomerular Filt Rate 111 ml/min (>60); GFR (African American) 135 ML/MIN (>60); Glucose 95 mg/dl (74-100); Potassium 3.7 mmoL/L (3.5-5.1); Sodium 139 mmol/L (136-145)
[2024-09-28 08:00] VITALS: BP 130/80; PULSE 68; RESP 16; TEMP 36.4; O2SAT 96
--- NOTE | 2024-09-28 10:12 | EXP.SURG.PN ---
Subjective Patient reports: no new complaints, feels better and tolerating a regular diet Exam Data for Last 24 hours Vital signs and Labs for Last 24 Hours: Temp Pulse Resp BP Pulse Ox O2 Del Method 97.6 F 68 16 130/80 96 Room Air 09/28/24 08:00 09/28/24 08:00 09/28/24 08:00 09/28/24 08:00 09/28/24 08:00 09/28/24 08:00 Laboratory Results - last 24 hr 09/28/24 06:30: WBC 11.9 H, RBC 4.63, Hgb 14.2, Hct 41.7 L, MCV 90.1, MCH 30.7, MCHC 34.1, RDW 13.0, Plt Count 247, MPV 10.9 H, Neut % (Auto) 66.0, Lymph % (Auto) 22.2, [place] % (Auto) 9.6 H, Eos % (Auto) 1.4, Baso % (Auto) 0.3, Neut # (Auto) 7.8, Lymph # (Auto) 2.6, [place] # (Auto) 1.1 H, Eos # (Auto) 0.2, Baso # (Auto) 0.0, Sodium 139, Potassium 3.7, Chloride 103, Carbon Dioxide 27, Anion Gap 12.7, BUN 7 L, Creatinine 0.80, Estimated Creat Clear 251, Estimated GFR 111, Est GFR ( Amer) 135, Glucose 95, Calcium 9.6 I & O for Last 24 hours: Intake & Output 09/25/24 09/26/24 09/27/24 09/28/24 11:59 11:59 11:59 11:59 Intake Total 250 / 250 1370 / 1370 Output Total 0 / 0 0 / 0 Balance 250 / 250 1370 / 1370 Weight 294 lb 2.252 oz 297 lb 6 oz Microbiology Reports for the Last 24 Hours: Microbiology 09/27/24 00:38 Blood Blood Culture - Preliminary NO GROWTH AFTER 24 HOURS 09/27/24 00:45 Blood Blood Culture - Preliminary NO GROWTH AFTER 24 HOURS Constitutional Constitutional: no acute distress *Routine Respiratory Exam Respiratory: Absent respiratory distress *Routine Cardiovascular Exam Cardiovascular: Absent tachycardia *Routine Abdominal Exam Abdominal: Present soft Comments: less TTP Progress Note: A&P Assessment and plan (1) Diverticulitis of large intestine with complication: Status: Acute Assessment and plan: OK from surgical standpoint for discharge home with outpatient follow-up Complete course of antibiotics (presumably PO Levaquin/Flagyl as he has improved on IV administration of this combination)
== END 2024-09-28 13:52 | disposition home or self-care (01) | DRG 872 ==
LOC: ER 09-27 00:35 → 2ND 09-27 08:00
PROVIDERS: Internal Medicine Adolescent Medicine; Admitting Provider Internal Medicine; Emergency Provider Student in an Organized Health Care Education/Training Program; PCP Nurse Practitioner Family; Visit Provider Internal Medicine
DX: A41.9 Sepsis, unspecified organism (principal); K57.20 Diverticulitis of large intestine with perforation and abscess without bleeding; E66.9 Obesity, unspecified; G47.33 Obstructive sleep apnea (adult) (pediatric); Z68.36 Body mass index [BMI] 36.0-36.9, adult; Z88.0 Allergy status to penicillin; Z88.8 Allergy status to other drugs, medicaments and biological substances
CPT/HCPCS: 36415; 74177; 80048; 80053; 80074; 81001; 83605; 83690; 83735; 85007; 85014; 85018; 85025; 85048; 85049; 85651; 86140; 87040; 87389; J1836; J1885; J1956; J2270; J2405; J7120; Q9967

== ENCOUNTER 2024-10-16 10:42 | Outpatient (CLI) | payer OTHER, SELFPAY ==
--- OUTSIDE RECORDS SUMMARY | 2024-06-08 17:30 | XMS_ITS ---
Author Organization [facility] Address [address] [place] [address] Care Team Providers Care Dressmaking Teacher Name Role Phone Yousif Daniel Primary Care Provider [phone] YOUSIF Daniel APRN Unavailable Unavailable Migration, Provider Unavailable Unavailable REASON FOR VISIT [facility] Encounter Medications Medication SIG (Take, Route, Frequency, Duration) Notes Start Date End Date Status amLODIPine Besylate 10 MG 1 tab(s) orally once a day; Duration: 30 day(s) 04/07/2022 Active Metamucil Smooth Texture 58.6 % as directed orally once a day; Duration: 7 day(s) 04/29/2022 Active MiraLax - DIRECTED ORALLY ONCE A DAY; Duration: 30 DAY(S) *Please review and pick correct [facility]ulation [facility] options. If intended option is not shown, discontinue and re-order from Quick Search* 04/29/2022 Active Lisinopril 10 MG 1 tab(s) orally once a day; Duration: 30 day(s) 05/05/2022 Active Encounters Encounter Location Date Provider Diagnosis [facility] [address] [place], [place] [address] 06/08/2024 Provider Migration Essential (primary) hypertension I10 Assessments Encounter Date Diagnosis (ICD Code) Assessment Notes Treatment Notes Treatment Clinical Notes Section Notes 06/08/2024 Essential (primary) hypertension (ICD-10 - I10) Plan Of Treatment Medication Medication Name Sig Start Date Stop Date Notes Lisinopril 10 MG 1 tab(s) orally once a day; Duration: 30 day(s) 05/05/2022 Progress Notes * Doc BAUMANNDOB:1990 (33 yo M)Acc No.[id number]:06/08/2024 Patient: Doc MALIK Provider: Mitali Diaz :1990 A ge:33 Y S ex:Male Date:06/08/2024 Address:[address] [place] [address] , [place], [id number] Pcp:Yousif Daniel Subjective: * Chief Complaints: * 1 . [facility] En[facility]. * Medical History: * Medications: T aking amLODIPine Besylate 10 MG Tablet 1 tab(s) orally once a day , Taking Metamucil Smooth Texture 58.6 % Powder as directed orally once a day , Taking MiraLax - POWDER FOR RECONSTITUTION DIRECTED ORALLY ONCE A DAY , Notes to Pharmacist: *Please review and pick correct [facility]. If intended option is not shown, discontinue and re-order from Quick Search* Objective: * Vitals: Assessment: * Assessment: 1. E ssential (primary) hypertension - I10 (Primary) Plan: * Treatment: * * Electronic signature of Azra ider Migration on 10/18/2024 at 10:45 AM EDT Sign off status: Pending * Provider: Mitali Diaz Date: 0 06/08/2024 Generated for Brady guzmán/Katherin/Roditting on: 0 10/18/2024 10:45 AM EDT
--- OUTSIDE RECORDS SUMMARY | 2024-10-03 05:15 | XMS_ITS ---
Author Organization [facility] Address [address] [place], [place] [address] Care Team Providers Care Boat Finisher Name Role Phone Yousif Daniel Primary Care Provider YOUSIF Daniel APRN Unavailable Unavailable REASON FOR VISIT Hospital F/U Encounters Encounter Location Date Provider Diagnosis [facility] [address] [place], [place] [address] 10/03/2024 Yousif Daniel Plan Of Treatment No Information Progress Notes * Valeriano BAUMANN:1990 (33 yo M)Acc No.[id number]:10/03/2024 Patient: Doc MALIK Provider: Yina Daniel APRN :1990 A ge:33 Y S ex:Male Date:10/03/2024 Address:[address] [place] [address] [place], [id number] Subjective: * Chief Complaints: * 1 . Hospital F/U. * Medical History: Objective: * Vitals: Assessment: Plan: * Treatment: * * Electronic signature of Peng Dainel APRN on 10/18/2024 at 10:45 AM EDT Sign off status: Pending * Provider: Yina Daniel APRN Date: 0 10/03/2024 Generated for Brady ng/Faxing/eTransmitting on: 0 10/18/2024 10:45 AM EDT
--- OUTSIDE RECORDS SUMMARY | 2024-10-10 04:30 | XMS_ITS ---
Author Organization [facility] Address [address] [place], [place] [address] Care Team Providers Care Concrete Mixer Operator Helper Name Role Phone Yousif Daniel Primary Care Provider YOUSIF Daniel APRN Unavailable Unavailable Deanna Leonardo Unavailable [phone] REASON FOR VISIT Hospital F/U from diverticulitis Encounters Encounter Location Date Provider Diagnosis [facility] [address] [place], [place] [address] 10/10/2024 Deanna Leonardo Plan Of Treatment No Information Progress Notes * ISIAH Brandtmario albertoDOB:1990 (33 yo M)Acc No.[id number]:10/10/2024 Patient: Doc MALIK Provider: CARLOS Patrick :1990 A ge:33 Y S ex:Male Date:10/10/2024 Address:[address] [place] [address] [address] [place], [id number] Pcp:Yousif Daniel Subjective: * Chief Complaints: * 1 . Hospital F/U from diverticulitis. * Medical History: Objective: * Vitals: Assessment: Plan: * Treatment: * * Electronic signature of Mary Leonardo APRN on 10/18/2024 at 10:44 AM EDT Sign off status: Pending * Provider: CARLOS Patrick Date: 0 10/10/2024 Generated for Brady guzmán/Katherin/Vandana on: 0 10/18/2024 10:44 AM EDT
--- OUTSIDE RECORDS SUMMARY | 2024-10-15 11:39 | XMS_ITS | Encounter Summary ---
Author Organization [facility] Address [facility] [place] [address] Care Team Providers Care Shoulder Boner Name Role Phone Unavailable Primary Care Provider Unavailabl e Source Comments This information has been disclosed to you from confidential records protectfrom disclosure by state law. You shall make no further disclosure of thisinformation without the specific, written, and informed release of theindividual to whom it pertains, or as otherwise permitted by law. A generalauthorization for the release of medical or other information is not sufficientfor the purposes of the release of HIV test results or diagnoses. [id number] Reason for Referral * Imaging/Cardiovascular Scan (Routine) - New Request Specialty Diagnoses / Procedures Referred By Contac t Referred To Contact Radiology Procedures CT Abdomen and or Pelvis Outside Exam System, Provider Not In [address] [address] Referral ID Status Reason Start Date Expiration Date V isits Requested Visits Authorized [id number] New Request 10/15/2024 04/13/2025 1 1 Reason for Visit * Auth/Cert (Routine) Specialty Diagnoses / Procedures Referred By Contac t Referred To Contact Radiology [facility] Radiology [address] [place] [address] Phone: tel: Referral ID Status Reason Start Date Expiration Date Visits Re quested Visits Authorized [id number] 1 1 Encounter Details Date Type Department Care Team (Latest Contact Info) Description 10/15/2024 11:39 AM EDT - 10/15/2024 11:59 PM EDT Hospital Encounter [facility] Radiology [address] [place] [address] System, Provider Not In Arrived Discharge Disposition: Home or Self Care WITHOUT Home Care Services Social History Tobacco Use Types Packs/Day Years Used Date Smoking Tobacco: Never Assessed Sex and Gender Information Value Date Recorded Sex Assigned at Male 10/15/2024 4:57 PM EDT Legal Sex Male 2:45 PM EDT Gender Identity Male 10/15/2024 4:57 PM EDT Sexual Orientation Straight 10/15/2024 4: 57 PM EDT documented as of this encounter Plan of Treatment Not on file documented as of this encounter Procedures Procedure Name Priority Date/Time Associated Diagnosis Comments CT ABDOMEN AND OR PELVIS OUTSIDE EXAM Routine 10/15/2024 11:39 AM EDT documented in this encounter Results * CT Abdomen and or Pelvis Outside Exam (10/15/2024 11:39 AM EDT) Narrative 10/15/2024 11:39 AM EDT Images associated with this accession number were presented to us for comparison to an examination performed here. us Provider Not In System IMG CT ORDERABLES Final R esult documented in this encounter Visit Diagnoses Not on filedocumented in this encounter
[2024-10-16 15:45] LABS: Influenza A, PCR Not Detected (NotDetected); Influenza B, PCR Not Detected (NotDetected)
[2024-10-17 00:17] LABS: Coronavirus 19, PCR Detected (NotDetected)
--- OUTSIDE RECORDS SUMMARY | 2024-10-18 10:45 | XMS_ITS | Clinical Summary ---
[facility] Address [address] [place] [address] Care Team Providers Care Barn Boss Name Role Phone Eric Dunlap MD Primary Care Provider + [phone] Allergies No known active allergies Medications ondansetron [...] HEPATITIS C SCREENING 09/23/2016 COVID-19 Vaccine (3 - 2023-2 5 season) 2023 06/12/2020, 05/12/2020 INFLUENZA VACCINE 12/04/2024 Pneumococcal Vaccine 0-49 Aged Out No longer eligible based on patient's age to complete this topic Additional Health Concerns Infection Onset Date Last Indicated Influenza 03/18/2019 03/18/2019 Insurance [facility] Care Teams Barn Boss Relationship Specialty Start Date End Date Eric Dunlap MD [facility] [address] [place] [address] PCP - General Adolescent Medicine 09/21/23
--- OUTSIDE RECORDS SUMMARY | 2024-10-18 10:45 | XMS_ITS | Patient Health Record ---
Author Organization [facility] D [facility] Address [address] [place] [address] Care Team Providers Care Technical Research Scientist Name Role Phone Yousif Daniel Primary Care Provider YOUSIF Daniel APRN Unavailable Unavailable Deanna Leonardo Unavailable [phone] Migration, Provider Unavailable Unavailable Allergies No Known [...] *Please review and pick correct strength-formulation from [employer] options. 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) Active confirmed Problem Obstructive sleep apnea syndrome (29923853) CLIFFORD (obstructive sleep apnea) (G47.33) Active confirmed Problem Diverticular disease of colon (904883573) Diverticulosis (K57.90) Active confirmed Problem Arthritis of both knees (231266552392412 8) Arthritis of both knees (M17.0) Active confirmed Encounters Encounter Location Date Provider Diagnosis [facility] [address] [place] [address] 06/08/2024 Provider Migration Essential (primary) hypertension I10 [...] Insured Coverage Start Date Coverage End Date [facility] [address] [place] [address] [id number] A2 Doc Baumann Self - patient is the insured Medical (General) History Medical History History ICD Code HTN Diverticulitis Knee issues
--- OUTSIDE RECORDS SUMMARY | 2024-10-18 10:45 | XMS_ITS | Clinical Summary ---
Author Organization [facility] Address [address] [place] [address] Care Team Providers Care Electric Cutter Operator Name Role Phone Belia Husain MYESHA Primary Care Provider [phone] Source Comments This information has been disclosed to you from confidential records protectedfrom disclosure by state law. You shall make no further disclosure of thisinformation without the specific, written, and informed release of theindividual to whom it pertains, or as otherwise permitted by law. A generalauthorization for the release of medical or other information is not sufficientfor the purposes of therelease of HIV test results or diagnoses. [id number] Encounters Date Type Department Care Team Description 10/15/2024 11:39 AM EDT - 10/15/2024 11:59 PM EDT Hospital Encounter [facility] Radiology [address] [place] [address] System, Provider Not In Arrived Discharge Disposition: Home or Self Care WITHOUT Home Care Services 09/26/2024 Orders Only EXTERNAL PROV RESULTS [address] [place] [address] System, Provider Not In from Last 3 Months Social History Tobacco Use Types Packs/Day Years Used Date Smoking Tobacco: Never Assessed Sex and Gender Information Value Date Recorded Sex Assigned at Male 10/15/2024 4:57 PM EDT Legal Sex Male 2:45 PM EDT Gender Identity Male 10/15/2024 4:57 PM EDT Sexual Orientation Straight 10/15/2024 4: 57 PM EDT Plan of Treatment Health Maintenance Due Date Last Done Comments Hepatitis C Screening (MyChart) 1990 Alcohol Misuse Screening 2008 Depression Screening 2008 HIV Screening 2008 Immunization: DTaP/Tdap/Td ( 2 - Tdap) 2009 04/06/1995 Immunization: Hepatitis B (1 of 3 - 19+ 3-dose series) 2009 Immunization: COVID-19 ( season) 2023 06/12/2020, 05/12/2020 Immunization: Influenza (MyChart) (#1) 2024 Immunization: Pneumococcal Aged Out N o longer eligible based on patient's age to complete this topic Procedures Procedure Name Priority Date/Time Associated Diagnosis Comments CT ABDOMEN AND OR PELVIS OUTSIDE EXAM Routine 10/15/2024 11:39 AM EDT from Last 3 Months Results * CT Abdomen and or Pelvis Outside Exam (10/15/2024 11:39 AM EDT) Narrative 10/15/2024 11:39 AM EDT Images associated with this accession number were presented to us for comparison to an examination performed here. us Provider Not In System IMG CT ORDERABLES Final R esult from Last 3 Months Insurance [facility] [facility] Care Teams Electric Cutter Operator Relationship Specialty Start Date End Date Belia Husain NP [address] [place] [address] PCP - General 10/17/24
--- OUTSIDE RECORDS SUMMARY | 2024-10-18 10:45 | XMS_ITS | Clinical Summary ---
Author Organization [facility] Address [address] [place] [address] Care Team Providers Care Screw Machine Setter Name Role Phone Pcp, No Primary Care [...] of 2 - 13+ 2-dose series) 12/07/2003 [facility]- SDOH Screenings 2008 [facility]-Adult SDOH Screenings 2008 [facility]-DTaP,Tdap,and Td Vaccines (1 - Tdap) 2009 [facility]-Hepatitis B Vaccines (1 of 3 - 19+ 3-dose series) 2009 HPV Vaccines (1 - 3-dose SCDM series) 2017 ANF-QRHEI-40 Vaccine (3 - 2023- season) 2023 06/12/2020, 05/12/2020 [facility]-Influenza Vaccine (#1) [...] to [place] [address] ANANT Care Teams Screw Machine Setter Relationship Specialty Start Date End Date Pcp, [place] [address] PCP - General Family Medicine 03/08/21
--- OUTSIDE RECORDS SUMMARY | 2024-10-18 10:45 | XMS_ITS | Encounter Summary ---
Author Organization [facility] Address [address] [place] [address] Care Team Providers Care Business Executive Name Role Phone Eric Dunlap MD Primary Care Provider + [phone] Encounter Details Date Type Department Care Team (Late st Contact Info) Description 03/21/2013 Conversion Encounter [facility] CON[facility] [address] [place] [address] Interface, See Report Social History [...] PM EST Clinical Report - Physicians/Mid Levels [facility] [address] [place], [place] [id number] 03/21/2013 Patient: DOC BAUMANN Sex: M : [...] and family. (Electronically signed by Arsenio Tompkins, NParker. 03/21/2013 22:25) Co-signature 03/22/2013 0:32 Agree with [...] (03/21/2013 9:36 PM EST) Swab (specimen) 03/21/2013 9 :36 PM EST Narrative [facility] - 03/24/2013 11:35 AM EST Specimen Type: Throat [facility] - Culture Throat Specimen: Throat Collected: [...] MICROBIOLOGY - GENERAL ORDER ASHLEY Final Result [facility] [address] [place] [address], * Rapid strep screen (03/21/2013 9:36 PM EST) Strep A Ag Negative Negative [facility] Comment: [place] by [id number] @ 03/21/2013 21:56 Negative Strep A antigen results should be considered presumptive. Confirmation by culture to follow. Test performed by Direct Antigen Testing. Swab (specimen) 03/21/2013 9 :36 PM EST Narrative [facility] - 03/21/2013 9:56 PM EST Specimen Type: Throat Alexis Trinh MD MICROBIOLOGY - GENERAL ORDER ASHLEY Final Result [facility] [address] [place] [address], documented in this encounter Visit Diagnoses Not on filedocumented in this encounter Additional Health Concerns Infection Onset Date Last Indicated Resolved Time Influenza 03/18/2019 03/18/2019 documented as of this encounter Care Teams Business Executive Relationship Specialty Start Date End Date Eric Dunlap MD [address] [place] [address] [address] [facility] [address] [place] [address] PCP - General Adolescent Medicine 09/21/23 documented as of this encounter
--- OUTSIDE RECORDS SUMMARY | 2024-10-18 10:45 | XMS_ITS | Encounter Summary ---
Author Organization [facility] Address [address] [place] [address] Care Team Providers Care Egg Trayer Name Role Phone Belia Husain MYESHA Primary Care Provider [phone] Source Comments This information has been disclosed [...] release of HIV test results or diagnoses. [id number] Reason for Referral * Imaging/Cardiovascular Scan (Routine) - New Request Specialty Diagnoses / Procedures Referred By Contac t Referred To Contact Radiology Procedures CT Abdomen and or Pelvis Outside Exam System, Provider Not In [address] [address] Referral ID Status Reason Start Date Expiration Date V isits Requested Visits Authorized [id number] New Request 10/15/2024 04/13/2025 1 1 Encounter Details Date Type Department Care Team (Late st Contact Info) Description 09/26/2024 Orders Only EXTERNAL PROV RESULTS [address] [place] [address] System, Provider Not In Social History Tobacco Use Types Packs/Day Years [...] on file documented as of this encounter Results * CT Abdomen and or Pelvis Outside Exam (10/15/2024 11:39 AM EDT) Narrative 10/15/2024 11:39 AM EDT Images associated with this accession number were presented to us for comparison to an examination performed here. us Provider Not In System IMG CT ORDERABLES Final R esult documented in this encounter Visit Diagnoses Not on filedocumented in this encounter Care Teams Egg Trayer Relationship Specialty Start Date End Date Belia Husain NP [address] [place] [address] PCP - General 10/17/24 documented as of this encounter
== END 2024-10-16 23:59 | disposition home or self-care (01) ==
LOC: LAB.DROPOF 10-18 10:42
PROVIDERS: PCP Nurse Practitioner Family; Visit Provider Student in an Organized Health Care Education/Training Program
DX: J06.9 Acute upper respiratory infection, unspecified (principal)
CPT/HCPCS: 87631

== ENCOUNTER 2025-01-10 12:13 | Outpatient (CLI) | payer OTHER, SELFPAY ==
[2025-01-10 16:46] LABS: Coronavirus 19, PCR Not Detected (NotDetected); Influenza A, PCR Not Detected (NotDetected); Influenza B, PCR Not Detected (NotDetected)
--- OUTSIDE RECORDS SUMMARY | 2025-01-13 12:15 | XMS_ITS | Encounter Summary ---
Author Organization [facility] Address [facility] [place] [address] Care Team Providers Care Integration Consultant Name Role Phone Belia Husain MYESHA Primary Care Provider [phone] Source Comments This information has been disclosed [...] release of HIV test results or diagnoses. [id number] Reason for Referral * Imaging/Cardiovascular Scan (Routine) - Pending Review Specialty Diagnoses / Procedures Referred By Contdaxa t Referred To Contact Radiology Procedures CT Abdomen and or Pelvis Outside Exam System, Provider Not In [address] [address] Referral ID Status Reason Start Date Expiration Date V isits Requested Visits Authorized [id number] Pending Review 10/15/2024 04/13/2025 1 1 Encounter Details Date Type Department Care Team (Late st Contact Info) Description 09/26/2024 Orders Only EXTERNAL PROV RESULTS [address] [place] [address] System, Provider Not In Social History Tobacco [...] on filedocumented in this encounter Care Teams Integration Consultant Relationship Specialty Start Date End Date Belia Husain NP [address] [place] [address] PCP - General 10/17/24 documented as of this encounter
--- OUTSIDE RECORDS SUMMARY | 2025-01-13 12:15 | XMS_ITS | Encounter Summary ---
Author Organization [facility] Address [address] [place] [address] Care Team Providers Care Mine Boss Name Role Phone Eric Dunlap MD Primary Care Provider + [phone] Encounter Details Date Type Department Care Team (Late st Contact Info) Description 03/21/2013 Conversion Encounter [facility] [address] [place] [address] Interface, See Report Social History [...] PM EST Clinical Report - Physicians/Mid Levels [facility] Department [address] [place], [place] [id number] 03/21/2013 Patient: DOC BAUMANN Sex: M : [...] (specimen) 03/21/2013 9 :36 PM EST Narrative [facility] - 03/24/2013 11:35 AM EST Specimen Type: Throat [facility] - Culture Throat Specimen: Throat [...] MICROBIOLOGY - GENERAL ORDER ASHLEY Final Result [facility] [address] [place] [address], * Rapid strep screen (03/21/2013 9:36 PM EST) Strep A Ag Negative Negative [facility] Comment: [place] by [id number] @ 03/21/2013 21:56 Negative Strep A antigen results should be considered presumptive. Confirmation by culture to follow. Test performed by Direct Antigen Testing. Swab (specimen) 03/21/2013 9 :36 PM EST Narrative [facility] - 03/21/2013 9:56 PM EST Specimen Type: Throat Alexis Trinh MD MICROBIOLOGY - GENERAL ORDER ASHLEY Final Result [facility] [address] [place] [address], documented in this encounter Visit Diagnoses Not on filedocumented in this encounter Additional Health Concerns Infection Onset Date Last Indicated Resolved Time Influenza 03/18/2019 03/18/2019 documented as of this encounter Care Teams Mine Boss Relationship Specialty Start Date End Date Eric Dunlap MD [address] [place] [address] [address] [facility] [address] [place] [address] PCP - General Adolescent Medicine 09/21/23 documented as of this encounter
--- OUTSIDE RECORDS SUMMARY | 2025-01-13 12:15 | XMS_ITS | Clinical Summary ---
Author Organization [facility] Address [address] [place] [address] Care Team Providers Care Black Top Roller Name Role Phone Pcp, No Primary Care [...] Vaccines (1 - 3-dose SCDM series) 2017 [id number] Vaccine (3 - 2024- season) 2024 06/12/2020, 05/12/2020 [facility]-Influenza Vaccine (#1) 2024 [facility]-Zoster [...] to [place] [id number] ANANT Care Teams Black Top Roller Relationship Specialty Start Date End Date Pcp, [place] [address] PCP - General Family Medicine 03/08/21
--- OUTSIDE RECORDS SUMMARY | 2025-01-13 12:15 | XMS_ITS | Clinical Summary ---
Author Organization [facility] Address [facility] [place] [address] Care Team Providers Care Account Executive Sales Representative Name Role Phone Belia Husain MYESHA Primary Care Provider [phone] Source Comments This information has been disclosed [...] therelease of HIV test results or diagnoses. [id number] Allergies Active Allergy Reactions Criticality Noted Date Comments Diphenhydramine Hcl 11/01/2024 Medications No known medications Active Problems Problem Noted Date Diagnosed Date Diverticulitis 11/01/2024 Encounters Date Type Department Care Team Description 11/01/2024 10:45 AM EDT Office Visit [facility] Office [address] [facility] [address] [place] [address] Odilon Palacio MD Diverticulitis (Primary Dx) 10/15/2024 11:39 AM EDT - 10/15/2024 11:59 PM EDT Hospital Encounter [facility] Radiology [address] [place] [address] System, Provider Not In Discharge Disposition: Home or Self Care WITHOUT Home Care Services from Last 3 Months Social History Tobacco Use Types Packs/Day Years Used Date Smoking Tobacco: Never Assessed Sex and Gender Information Value Date Recorded Sex Assigned at Male 10/15/2024 4:57 PM EDT Legal Sex Male 2:45 PM EDT Gender Identity Male 10/15/2024 4:57 PM EDT Sexual Orientation Straight 10/15/2024 4: 57 PM EDT Last Filed Vital Signs Vital Sign Reading Time Taken Comments Blood Pressure 152/109 11/01/2024 9:50 AM EDT Pulse 76 11/01/2024 9:50 AM EDT Temperature - - Respiratory Rate - - Oxygen Saturation 98% 11/01/2024 9:50 AM EDT Inhaled Oxygen Concentration 98% 11/01/2024 9 :50 AM EDT Weight 132.5 kg (292 lb) 11/01/2024 9:50 AM EDT Height 193 cm (6' 4 ) 11/01/2024 9:50 AM EDT Body Mass Index 35.54 11/01/2024 9:50 AM EDT Plan of Treatment Health Maintenance Due Date Last Done Comments Diabetes Screening 1990 Hepatitis C Screening (MyChart) 1990 Alcohol Misuse Screening 2008 Depression Screening 2008 HIV Screening 2008 Immunization: DTaP/Tdap/Td ( 2 - Tdap) 2009 04/06/1995 Immunization: Hepatitis B (1 of 3 - 19+ 3-dose series) 2009 Immunization: COVID-19 ( season) 2024 06/12/2020, 05/12/2020 Immunization: Influenza (MyChart) (#1) 2024 [...] from Last 3 Months Insurance [employer] [facility] [facility] Care Teams Account Executive Sales Representative Relationship Specialty Start Date End Date Belia Husain NP [address] [place] [phone] PCP - General 10/17/24
--- OUTSIDE RECORDS SUMMARY | 2025-01-13 12:15 | XMS_ITS | Clinical Summary ---
[facility] Address [address] [place] [address] Care Team Providers Care Funeral Service Manager Name Role Phone Eric Dunlap MD Primary Care Provider + [phone] Allergies No known active allergies Medications ondansetron [...] ANNUAL PHYSICAL 09/23/2016 HEPATITIS C SCREENING 09/23/2016 INFLUENZA VACCINE 10/04/2024 Pneumococcal Vaccine 0-49 Aged Out No longer eligible based on patient's age to complete this topic Additional Health Concerns Infection Onset Date Last Indicated Influenza 03/18/2019 03/18/2019 Insurance [facility] Care Teams Funeral Service Manager Relationship Specialty Start Date End Date Eric Dunlap MD [address] [facility] [address] [facility] [address] [place] [address] PCP - General Adolescent Medicine 09/21/23
== END 2025-01-10 23:59 ==
LOC: LAB.DROPOF 01-13 12:13
PROVIDERS: PCP Nurse Practitioner Family; Visit Provider Nurse Practitioner
DX: Z11.9 Encounter for screening for infectious and parasitic diseases, unspecified (principal); R65.10 Systemic inflammatory response syndrome (SIRS) of non-infectious origin without acute organ dysfunction
CPT/HCPCS: 87631